=== PATIENT | female | born 1935 | race Caucasian/White ===

== ENCOUNTER 2024-10-31 07:30 | Emergency (ER) | payer MEDICARE, BC, SELFPAY ==
[2024-10-31] VITALS (7 sets, daily range): BP systolic 192–227; BP diastolic 61–95; PULSE 55–58; RESP 16–17; TEMP 36.6–36.8; O2SAT 95–97; BMI 27.4
--- NOTE | 2024-10-31 07:35 | EKG_ITS ---
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
--- NOTE | 2024-10-31 08:17 | XR_ITS ---
Examination: PA lateral chest 2 views Technique: Upright PA lateral chest 2 views Exam date and time: October 31, 2024 at 0835 hrs. Comparison December 11, 2017 Indications: Weakness shortness of breath today. Findings: Mild enlargement left ventricle No lobar pneumonia or pulmonary edema Prominent osteopenia Impression: Mild enlargement left ventricle No pneumonia or pulmonary edema
--- NOTE | 2024-10-31 08:18 | XR_ITS ---
Examination: CT brain head without contrast. 2-D sagittal coronal reconstructions Date and time of exam:October 31, 2024 0832 hrs. Indications: Lightheadedness episodes beginning 10 days ago CTDI: vol (mGy):45.7 DLP: (mGycm):977 Technique: Multiple CT axial sections of the brain have been obtained, 5 mm slice thickness. Contrast has not been administered. 2-D sagittal, coronal reconstructions have been obtained Low dose protocols were performed. One or more of the following dose reduction techniques were used; automated exposure control, adjustment of the mA and/or KV according to patient size, use of iterative reconstruction technique. Findings: No significant ventricular enlargement. Intra-axial or extra-axial hemorrhage density is not seen. No mass effect or midline shift Basal cisterns are not remarkable. Fourth ventricle is midline. Cranial vault intact. Impression: Negative for acute hemorrhage, mass effect or midline shift Advise clinical correlation follow-up accordingly
--- NOTE | 2024-10-31 08:46 | PC.NURSE ---
GIVEN WATER PER REQUEST
[2024-10-31 09:11] LABS: Basophils # (Auto) 0.1 Thou/mm3 (0.0-0.2); Basophils % (Auto) 1 % (0-2.5); Eosinophils # (Auto) 0.3 Thou/mm3 (0.0-0.5); Eosinophils % (Auto) 4 % (0-10); Hematocrit 40.5 % (36.0-46.0); Hemoglobin 13.5 g/dL (12.0-16.0); Immature Granulocytes % (Auto) 0 % (0-0); Immature Granulocytes Auto 0.03 Thou/mm3 (0.00-0.00); Lymphocytes # (Auto) 1.1 Thou/mm3 (1.0-4.8); Lymphocytes % (Auto) 15 % (10-50); Mean Corpuscular HGB Conc 33.3 g/dl (31.0-37.0); Mean Corpuscular Hemoglobin 29.5 pg (25.0-35.0); Mean Corpuscular Volume 89 fL (80-100); Monocytes # (Auto) 0.6 Thou/mm3 (0.0-0.8); Monocytes % (Auto) 7 % (0-12); Neutrophils # (Auto) 5.5 Thou/mm3 (1.8-7.7); Neutrophils % (Auto) 73 % (37-80); Nucleated Red Blood Cell % 0 /100 WBC (0); Platelet Count 293 Thou/mm3 (140-440); RDW Standard Deviation 44.1 fL (36.4-46.3); Red Blood Count 4.57 Miln/mm3 (4.00-5.20); White Blood Count 7.6 Thou/mm3 (3.6-11.0)
[2024-10-31 09:34] LABS: Alanine Aminotransferase 13 U/L (10-49); Albumin, Serum 4.7 gm/dL (3.4-4.8); Albumin/Globulin Ratio 1.5 (1.2-2.2); Alkaline Phosphatase 55 U/L (46-116); Anion Gap 6 (7-16); Aspartate Amino Transferase 19 U/L (0-34); BUN/Creatinine Ratio 21 Ratio (12-20); Bilirubin,Total 0.4 mg/dL (0.3-1.2); Blood Urea Nitrogen 17 mg/dL (9-23); Calcium 9.7 mg/dL (8.3-10.6); Calcium (Corrected) 9.7 mg/dL (8.5-10.1); Carbon Dioxide 27.7 mMol/L (20.0-31.0); Chloride 103 mMol/L (98-107); Creatinine (Component) 0.8 mg/dL (0.6-1.3); Estimated Creatinine Clearance 44.8 mL/min (>60); Globulin 3.1 gm/dL (2.3-3.5); Glucose 127 mg/dL (74-106); Osmolality,Calculated 277 (275-295); Potassium 4.2 mMol/L (3.4-5.1); Sodium 137 mMol/L (136-145); Total Protein 7.8 gm/dL (5.7-8.2); Troponin I < 0.020 ng/mL (0.0-0.045); eGFR > 60 See Note
[2024-10-31 09:47] LABS: B-Type Natriuretic Peptide 124 pg/mL (0-100)
--- NOTE | 2024-10-31 10:20 | PC.NURSE ---
Patient to er with c/o feeling very weak, daughter at bedside, daughter states for the past week she has been passing out off and on and has been seeing her PMD for this however, patient felt worse this am and called her daughter, chart up to be seen by er provider, call light within reach.
[2024-10-31 10:41] LABS: Collection Type, Urine Voided
[2024-10-31 11:02] LABS: Bilirubin,Urine Negative (Negative); Blood,Urine Negative (Negative); Clarity,Urine Clear (Clear/Hazy); Color,Urine Lt-Yellow (Lt Yel-Yel); Culture Indicated,Urine Not Indicated; Glucose, Urine Negative (Negative); Ketones,Urine Negative (Negative); Leukocyte Esterase,Urine Positive (Negative); Nitrite,Urine Negative (Negative); Protein,Urine 2+ (Neg - Trace); RBC,Urine 2 /hpf (0-3); Specific Gravity,Urine 1.014 (1.001-1.035); Squamous Epithelial Cell,Urine < 1 /hpf (0-5); Urobilinogen,Urine Negative mg/dL (0.0-1.0); WBC,Urine 10 /hpf (0-5)
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
[2024-10-31 11:51] LABS: Troponin I < 0.020 ng/mL (0.0-0.045)
[2024-10-31] MEDS: hydrALAZINE HCL 25 MG TABLET PO (11:58)
[2024-10-31] MEDS: amLODIPine BESYLATE 5 MG TABLET PO (11:59)
== END 2024-10-31 13:02 | disposition home or self-care (01) ==
PROVIDERS: Nurse Practitioner Family; Nurse Practitioner Primary Care; Emergency Provider Emergency Medicine; PCP Internal Medicine
DX: R42 Dizziness and giddiness (principal); R00.1 Bradycardia, unspecified; I16.0 Hypertensive urgency; E78.5 Hyperlipidemia, unspecified; E03.9 Hypothyroidism, unspecified
CPT/HCPCS: 36415; 70450; 71046; 80053; 81001; 83880; 84484; 85025; 93005; 99284; A9270

== ENCOUNTER 2025-03-26 07:29 | Inpatient (IN) | payer MEDICARE, BC, SELFPAY ==
[2025-03-26] VITALS (34 sets, daily range): BP systolic 171–223; BP diastolic 65–116; PULSE 56–102; RESP 14–97; TEMP 36.5–37.1; O2SAT 89–98; BMI 26.5
--- NOTE | 2025-03-26 07:33 | XR_ITS ---
Examination: CT brain head without contrast. 2-D sagittal coronal reconstructions Date and time of exam:March 26, 2025, 0739 hours Comparison October 31, 2024 INDICATIONS: Stroke alert, onset focal neurologic deficit beginning this morning CTDI: vol (mGy):46.9 DLP: (mGycm):930 Technique: Multiple CT axial sections of the brain have been obtained, 5 mm slice thickness. Contrast has not been administered. 2-D sagittal, coronal reconstructions have been obtained Low dose protocols were performed. One or more of the following dose reduction techniques were used; automated exposure control, adjustment of the mA and/or KV according to patient size, use of iterative reconstruction technique. Findings: No significant ventricular enlargement. Intra-axial or extra-axial hemorrhage density is not seen. No mass effect or midline shift Basal cisterns are not remarkable. Fourth ventricle is midline. Cranial vault intact. Impression: Negative for acute hemorrhage, mass effect or midline shift
--- NOTE | 2025-03-26 07:33 | EKG_ITS ---
[facility] Test Date: 2025-03-26 Pat Name: WINSTON MILLAN Department: Room: - Gender: Female Balance Clerk: : 1935 Requested By: Juarez Rojas Order Number: [id number] Reading MD: Juarez Rojas Measurements Intervals [place] Rate: 57 P: 55 [place]: 260 QRS: 42 QRSD: 104 T: 89 QT: 432 QTc: 421 Interpretive Statements SINUS BRADYCARDIA WITH FIRST DEGREE AV BLOCK INCOMPLETE RIGHT BUNDLE BRANCH BLOCK [90+ ms QRS DURATION, TERMINAL R IN V1/V2, 40+ ms S IN I/aVL/V4/V5/V6] ST DEVIATION AND MODERATE T-WAVE ABNORMALITY, CONSIDER LATERAL ISCHEMIA [-0.1+ mV T-WAVE IN I/aVL/V5/V6] Compared to ECG 10/31/2024 08:04:25 Possible ischemia now present T-wave abnormality still present /store/S0/[id number]
--- NOTE | 2025-03-26 07:33 | XR_ITS ---
Examination: CTA carotids with intravenous contrast CTA brain, head with intravenous contrast. 2-D sagittal, coronal reconstructions. 3-D reconstructions. Exam date and time: March 26, 2025, 0745 hrs. Indications: Stroke alert, onset left-sided body weakness today CTDI: vol (mGy) 20.8 DLP: (mGycm) 450 Technique: Multiple CTA axial brain, head carotid images post intravenous contrast injection 75 cc, [id number]. 2-D sagittal, coronal reconstructions. 3-D reconstructions, 3-D post processing including vascular maximum intensity projection images. Low dose protocols were performed. One or more of the following dose reduction techniques were used; automated exposure control, adjustment of the mA and/or KV according to patient size, use of iterative reconstruction technique. 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 No cerebral large vessel arterial occlusions or thrombus
--- NOTE | 2025-03-26 07:34 | EDNOTE_ITS ---
Neuro Symptoms Deficit-RME/HPI General Chief Complaint: Neuro Symptoms/Deficit Stated Complaint: temporary vision loss Arrival date/time: 03/26/25 07:29 RME / HPI RME / HPI Narrative: DR. GIMENEZ MAIN ED EVALUATION: This section includes all my notes and documentations, including HPI, PE, and ED course.? Juarez Gimenez MD HPI: 89 year old female with past medical history for hypertension here with left eye vision loss, generalized weakness possibly worse on the left side, and unsteady gait. She woke up with the symptoms at 0640 AM, about an hour ago, and called 91 1. She went to bed normal at 10 PM last night. Her symptoms lasted for about 30 minutes and have completely resolved. Per EMS, her BP was elevated at 211/81. No other complaints. ROS: All negative except as documented in HPI. Physical Exam: General:? Alert and oriented.? No acute distress.?? Eyes:? Conjunctivae and lids clear.? EOMI.? PERRL. ENT:? No nasal congestion.? Neck:? Supple.? No carotid bruit.? No JVD.?? Heart:? RRR.? Lungs:? No respiratory distress.? Good air movement.? No rhonchi, wheezing, rales.?? Abdomen:? Soft and nontender.? Legs:? No clubbing, cyanosis, edema.? Skin:? Warm and dry.?? Neuro:? Alert and oriented X 3.? Cranial Nerves II-XII grossly intact.? No peripheral motor deficits. I reviewed EMS notes. I reviewed all diagnostic test results. My interpretation of the EKG is?Sinus rhythm (57 bpm) with nonspecific ST-T changes. My interpretation of the chest x-ray is NAD. My review of the head CT report is?NAD. My review of the head/neck CTA report is NAD. Blood tests remarkable for troponin 0.064. UA showed positive leukocyte esterase and 19 WBC. At this point, diagnoses include TIA, elevated troponin, and UTI. Treatment here included Plavix 300 mg and Rocephin 1 g IV. Patient took ASA at home. Patient remained stable. I discussed the case with our telehealth neurologist.? About the presentation and exam and diagnostics and treatments here.? Recommended hospitalization for further care. I discussed the case with our hospitalist.? About the presentation and exam and diagnostics and treatments here.? And need of further care in the hospital. Will accept the patient. Juarez Gimenez MD Related Data Home Medications ?Medication ?Instructions ?Recorded ?Confirmed sertraline 100 mg tablet (Zoloft) 50 mg PO QDAY ##0 01/04/24 simvastatin 40 mg tablet 40 mg PO QDAY ##0 11/26/12 0 01/04/24 amlodipine 5 mg tablet 5 mg PO BID #0 tabs 05/15/16 01/04/24 hydrochlorothiazide 12.5 mg capsule 12.5 mg PO QDAY 01/04/24 fenofibrate nanocrystallized 48 mg 48 mg PO QDAY 10/0801/04/24 tablet carvedilol 25 mg tablet 25 mg PO BID 06/13/23 diazepam 5 mg tablet (Valium) 5 mg PO DAILY PRN Anxiet y 06/13/23 01/04/24 levothyroxine 100 mcg tablet 100 mcg PO QDAY 06/13/23 01/04/24 (Synthroid) Allergies Allergy/AdvReac Type Severity Reaction Status Date / Time Penicillins Allergy Severe Rash Verified 10/31/24 07:34 shellfish derived Allergy Severe Hives Verified 10/31/24 07:34 tramadol Allergy Severe Headache Verified 10/31/24 07:34 Course Quality Measures none Orders Category Date Time Status Bedside Blood Glucose NOW Care 03/26/25 07:33 Active COVID-19 Screening Questionnaire NOW Care 03/26/25 09:55 Active Director Home NOW Care 03/26/25 07:33 Active Continuous Pulse Oximetry NOW Care 03/26/25 07:33 Completed Decision to Admit X1 Care 03/26/25 09:55 Active EKG (ED ONLY) *Do not use* NOW Care 03/26/25 07:33 Completed In and Out Catheter NEEDED Care 03/26/25 07:33 Active Insert IV NOW Care 03/26/25 07:33 Active NIH Stroke Scale now Care 03/26/25 07:33 Active NPO NOW Care 03/26/25 07:33 Active Nurse Swallow Screen x1 Care 03/26/25 07:33 Active Consult to Neurology / Tele-Neurology Routine Cons 03/26/25 07:[address] angio stroke protocol Stat Exams 03/26/25 07:[address] stroke protocol Stat Exams 03/26/25 07:33 Completed EKG (ED Only) Stat Exams 03/26/25 07:33 Draft XR chest 1V portable Stat Exams 03/26/25 07:34 Completed Alcohol, Blood Medical Stat Lab 03/26/25 07:40 Completed B-Type Natriuretic Peptide Stat Lab 03/26/25 07:40 Completed Bilirubin,Direct Stat Lab 03/26/25 07:40 Completed CBC Stat Lab 03/26/25 07:40 Completed Comprehensive Metabolic Panel Stat Lab 03/26/25 07:40 Completed Drug Screen,Urine Stat Lab 03/26/25 08:45 Completed Free T4 (Free Thyroxine) Stat Lab 03/26/25 07:40 Completed Magnesium Stat Lab 03/26/25 07:40 Completed Partial Thromboplastin Time Stat Lab 03/26/25 07:40 Completed Prothrombin Time with INR Stat Lab 03/26/25 07:40 Completed TSH [Thyroid Stimulating Hormone] Stat Lab 03/26/25 07:40 Completed Troponin I Stat Lab 03/26/25 07:40 Completed Urinalysis Stat Lab 03/26/25 08:42 Completed Urine Culture Stat Lab 03/26/25 08:45 Received Clopidogrel [Plavix] Med 03/26/25 07:55 Discontinued 300 mg PO X1 ONE Labetalol IV [Trandate IV] Med 03/26/25 07:33 Discontinued 10 mg IVP Q15M PRN Labetalol IV [Trandate IV] Med 03/26/25 08:40 Active 10 mg IVP Q15M PRN Nicardipine/Ns 20Mg Ivpb [Cardene Ivpb] Med 03/26/25 07:33 Active 20 mg in 200 ml IV 5 mg/hr Ondansetron Inj [Zofran Inj] Med 03/26/25 07:33 Active 4 mg IVP Q4HR PRN Sodium Chloride 0.9% 1000 ml [Ns] 1,000 ml Med 03/26/25 07:45 Active IV Q10H Oxygen Delivery NOW RT 03/26/25 07:33 Active Vital Signs Vital signs: Vital Signs Temperature 97.8 F 03/26/25 09:29 Pulse Rate 57 L 03/26/25 09:29 Respiratory Rate 17 03/26/25 09:29 Blood Pressure 192/68 H 03/26/25 09:29 Pulse Oximetry (%) 95 03/26/25 09:29 Oxygen Delivery Method Room Air 03/26/25 09:29 Neuro Symptoms / Deficit MDM Narrative MDM Narrative:: I, Angie Aggarwal am scribing for and in the presence of Dr. Gimenez. 89 year old female with past medical history for hypertension here with left eye vision loss, generalized weakness possibly worse on the left side, and unsteady gait. She woke up with the symptoms at 0640 AM, about an hour ago, and called 911. She went to bed normal at 10 PM last night. Her symptoms lasted for about 30 minutes and have completely resolved. Per EMS, her BP was elevated at 211/81. No other complaints. Patient data External records reviewed:: [facility] previous records and EMS form Clinical information provided by:: patient and EMS Social determinants that could affect healthcare access:: none Patient has the following chronic illnesses:: hypertension How is presenting disease/condition affected by chronic disease/condition?: exacerbated by Evaluation data The following diagnostics were reviewed and interpreted by me:: EKG tracing(s) (My interpretation of the EKG is: Sinus rhythm (57 bpm) with nonspecific ST-T changes. Juarez Gimenez MD) Lab and/or radiology exams considered but not ordered:: none Interpretation Summary: I reviewed all diagnostic test results. My interpretation of the EKG is?Sinus rhythm (57 bpm) with nonspecific ST-T changes. My interpretation of the chest x-ray is NAD. My review of the head CT report is?NAD. My review of the head/neck CTA report is NAD. Blood tests remarkable for troponin 0.064. UA showed positive leukocyte esterase and 19 WBC. Medications / Prescriptions Medications or Prescriptions considered but not ordered:: none Medication administrations:: Medication Administration History Acetaminophen (Acetaminophen 325 Mg Tablet) 650 mg PO Q6H PRN PRN Reason: Fever >101.5 Stop: 04/25/25 10:00 Acetaminophen (Acetaminophen 325 Mg Tablet) 650 mg PO Q6H PRN PRN Reason: PAIN SCALE 1-3 (mild Stop: 04/25/25 10:00 Aspirin (Aspirin Ec 81 Mg Tabec) 81 mg PO QDAY [facility] Stop: 04/26/25 08:59 Atorvastatin Calcium (Atorvastatin Calcium 20 Mg Tablet) 40 mg PO HS [facility] Stop: 04/25/25 20:59 Heparin Sodium (Porcine) (Heparin Sod Inj 5000 Unit/Ml Vial) 5,000 unit SC Q8HR [facility] Stop: 04/09/25 13:59 Hydralazine HCl (Hydralazine Inj 20 Mg/Ml Vial) 10 mg IVP Q6H PRN PRN Reason: Give if SBP>220 AND DBP>120 Stop: 04/25/25 10:14 Sodium Chloride (Ns) 1,000 mls @ 100 mls/hr IV Q10H [facility] Stop: 04/25/25 07:44 Last Admin: 03/26/25 08:37 Dose: 100 mls/hr Documented By: VG Nicardipine/Sodium Chloride (Cardene Ivpb) 20 mg in 200 mls @ 50 mls/hr IV .Q4H ONE; Protocol Stop: 03/26/25 11:32 Last Admin: 03/26/25 08:38 Dose: Not Given Documented By: VG Non-Admin Reason: Change of Condition Labetalol HCl (Labetalol Inj 5 Mg/Ml Vial 20 Ml) 10 mg IVP Q15M PRN PRN Reason: HIGH BP, SBP GREATER THAN 220 Levothyroxine Sodium (Levothyroxine Sodium 112 Mcg Tablet) 112 mcg PO ACBR [facility] Stop: 04/26/25 05:59 Ondansetron HCl (Ondansetron Inj 2 Mg/Ml Inj 2 Ml) 4 mg IVP Q4HR PRN PRN Reason: NAUSEA OR VOMITING Stop: 04/25/25 07:32 Pantoprazole Sodium (Pantoprazole 40 Mg Tablet) 40 mg PO QDAY [facility] Stop: 04/25/25 10:14 Sennosides (Senna Tablet) 1 tab PO QDAY PRN; Protocol PRN Reason: constipation Stop: 04/25/25 10:00 Discontinued Medications Aspirin (Aspirin Ec 81 Mg Tabec) 81 mg PO QDAY [facility] Stop: 04/25/25 10:14 Last Admin: 03/26/25 10:33 Dose: Not Given Documented By: VG Non-Admin Reason: Discontinued Clopidogrel Bisulfate (Clopidogrel Bisulfate 75 Mg Tablet) 300 mg PO X1 ONE Stop: 03/26/25 07:56 Last Admin: 03/26/25 08:35 Dose: 300 mg Documented By: VG Ceftriaxone Sodium/Dextrose (Rocephin/D5w 1gm Iv Premix) 1 gm in 50 mls @ 100 mls/hr IV X1 ONE Stop: 03/26/25 10:39 Labetalol HCl (Labetalol Inj 5 Mg/Ml Vial 20 Ml) 10 mg IVP Q15M PRN PRN Reason: HIGH BP Treatment here included Plavix 300 mg and Rocephin 1 g IV. Patient took ASA at home. Consultations Consultation(s) initiated? (list below): Yes Consultation #1 (Physician, Specialty, Details): I discussed the case with our telehealth neurologist.? About the presentation and exam and diagnostics and treatments here.? Recommended hospitalization for further care. Consultation #2 (Physician, Specialty, Details): I discussed the case with our hospitalist.? About the presentation and exam and diagnostics and treatments here.? And need of further care in the hospital. Will accept the patient. Diagnosis Neuro Differential Diagnosis: subarachnoid hemorrhage, cerebrovascular accident, transient cerebral ischemia and other (Sepsis, pneumonia, UTI, dehydration, electrolyte abnormalities) Most likely diagnosis given after review of the tests above:: TIA, UTI, elevated troponin Admission Indicated Admission indicated?: indicated Explain why admission is indicated or not indicated:: TIA, UTI, elevated troponin Admission Request Was there a request for admission?: Yes Admission Attestation Admission request attestation: Discussed case with Hospitalist service regarding admission. Discussed patients ED course, exam findings, labs, and radiology results. The Hospitalist [agrees] to accept the patient for admission. Disposition Plan Disposition Plan: Admit Critical Care Time Critical Care Time Critical Care Time: Yes Total Critical Care Time (min.): 36 Attestation: Due to a high probability of clinically significant, life threatening deterioration, the patient required my highest level of preparedness to intervene emergently and I personally spent this critical care time directly and personally managing the patient. This critical care time included obtaining a history; examining the patient; ordering and review of studies; arranging urgent treatment with development of a management plan; evaluation of patient's response to treatment; frequent reassessment; and discussions with family and other providers. It was exclusive of separately billable procedures and treating other patients and teaching time. Juarez Gimenez MD Discharge Plan Plan Patient Disposition: Admit Acute Care w/in Hospital Problem List Clinical Impression: Transient cerebral ischemia, UTI (urinary tract infection), Elevated troponin
--- NOTE | 2025-03-26 07:34 | XR_ITS ---
Examination: AP chest single view Technique one AP portable upright chest single view Date and time: March 26, 2025, 0758 hrs. Comparison July 31, 2025 Indications: Shortness of breath today. Findings: Mild enlargement cardiac contour. Mild vascular congestion. No lobar pneumonia or pulmonary edema Impression: Mild vascular congestion.
--- NOTE | 2025-03-26 07:54 | PD.TNEURO ---
Tele Neuro Consultation Consultation Date 03/26/25 Consultation Narrative [facility] Tele[facility] Consult [facility] Patient Name:???Kasia Martinez Date of :???[id number] Identification Number:??? Date of Service:???03/26/2025 07:23:56 Diagnosis:?R26.81 - Unsteady gait Impression: ?Patient is a 89-year-old female with a past medical history significant for hypertenson, hyperlipidemia currently on aspirin 81 mg is being evaluated for concerns of left eye vision problems and imbalance. ? ?Patient presents with complaints of unsteadiness when ambulating. She has also had an episode of left eye vision problems which seems to have resolved. Her last well-known was yesterday night when she went to bed. She had her symptoms the moment she woke up this morning. ?Head CT appears unremarkable for any acute intracranial findings. ?On exam she is awake alert, no clear lateralizing numbness or weakness. Extraocular motion and visual parra (as per nursing exam) are intact. No upper extremity ataxia bilaterally. Speech and language function seemingly intact. ? ?Have to rule out a posterior circulation ischemic event. ?Last well-known greater than 4-1/2 hours, patient is not an IV thrombolytic candidate. ?She takes aspirin every day, load with Plavix 300 mg. ?Allow permissive hypertension up to a systolic of 220. ?Please obtain MRI brain with and without contrast. Our recommendations are outlined below. Recommendations: ? Stroke/Telemetry Floor ? Neuro Checks (Q2) ? Bedside Swallow Eval ? DVT Prophylaxis ? IV Fluids, Normal Saline ? Head of Bed 30 Degrees ? Euglycemia and Avoid Hyperthermia (PRN Acetaminophen) Sign Out: ? Discussed with Emergency Department Provider Advanced Imaging:Advanced imaging has been ordered. Results pending. Metrics: Last Known Well: 03/25/2025 22:00:00 Dispatch Time: 03/26/2025 07:23:56 Arrival Time: 03/26/2025 07:30:11 Initial Response Time: 03/26/2025 07:28:14Symptoms: left eye vision loss, balance issues. Initial patient interaction: 03/26/2025 07:32:07 NIHSS Assessment Completed: 03/26/2025 07:42:54Patient is not a candidate for Thrombolytic. Thrombolytic Medical Decision: 03/26/2025 07:43:02Patient was not deemed candidate for Thrombolytic because of following reasons: LKW outside 4.[address] Head: CT head unremarkable for acute infarction or hemorrhage per Radiology: report reviewed Primary Provider Notified of Diagnostic Impression and Management Plan on: 03/26/2025 07:52:22 History of Present Illness:Patient is a 89 year old Female. Patient was brought by EMS for symptoms of left eye vision loss, balance issues. Patient is a 89-year-old female with a past medical history significant for hypertension, hyperlipidemia currently on aspirin 81 mg is being evaluated for concerns of left eye vision problems and imbalance. Patient mentions that the last time she walked normally was yesterday night when she went to bed. She went to bed at approximately 930 or 10 PM. She woke up at 7 AM this morning. She states that she was seemingly normal when she was laying down in bed, however when she stood up she started feeling out of balance. She describes it as the whole body was out of control. She was wobbly. She had to hold onto things when she had to walk. She also noticed left eye vision problems. She states that it felt as if there were fireworks on the left eyelid. The vision problems lasted for approximately 30 minutes or so and it resolved. Currently she says she has not walked since then. She called EMS. EMS brought her here. She states she measured her blood pressure and it was very elevated. It was elevated even yesterday night at 152/62. This morning it was running in the 200s. ? Past Medical History: ?Hypertension ?Hyperlipidemia ?There is no history of Diabetes Mellitus Other PMH:? Hypothyroidism Medications: No Anticoagulant use? No Antiplatelet use Reviewed EMR for current medications Allergies:? Description:?As per chart Social History: Smoking: No Family History: There is no family history of premature cerebrovascular disease pertinent to this consultation ROS : 14 Points Review of Systems was performed and was negative except mentioned in HPI. Past Surgical History: There Is No Surgical History Contributory To Today?s Visit ? Examination: BP(235/85),?Pulse(62),?Blood Glucose(129) 1A: Level of Consciousness - Alert; keenly responsive?+ 0 1B: Ask Month and Age - Both Questions Right?+ 0 1C: Blink Eyes & Squeeze Hands - Performs Both Tasks?+ 0 2: Test Horizontal Extraocular Movements - Normal?+ 0 3: Test Visual Parra - No Visual Loss?+ 0 4: Test Facial Palsy (Use Grimace if Obtunded) - Normal symmetry?+ 0 5A: Test Left Arm Motor Drift - No Drift for 10 Seconds?+ 0 5B: Test Right Arm Motor Drift - No Drift for 10 Seconds?+ 0 6A: Test Left Leg Motor Drift - No Drift for 5 Seconds?+ 0 6B: Test Right Leg Motor Drift - No Drift for 5 Seconds?+ 0 7: Test Limb Ataxia (FNF/Heel-Shah) - No Ataxia?+ 0 8: Test Sensation - Normal; No sensory loss?+ 0 9: Test Language/Aphasia - Normal; No aphasia?+ 0 10: Test Dysarthria - Normal?+ 0 11: Test Extinction/Inattention - No abnormality?+ 0 NIHSS Score:?0 Pre-Morbid Modified [place] Scale:1 Points = No significant disability despite symptoms; able to carry out all usual duties and activities Spoke with :?ED Provider This consult was conducted in real time using interactive audio and video technology. Patient was informed of the technology being used for this visit and agreed to proceed. Patient located in hospital and provider located at home/office setting. Patient is being evaluated for possible acute neurologic impairment and high probability of imminent or life-threatening deterioration. I spent total of 48 minutes providing care to this patient, including time for face to face visit via telemedicine, review of medical records, imaging studies and discussion of findings with providers, the patient and/or family. Dr Reji Núñez [facility] For Inpatient follow-up with [facility] physician please call [facility] at . As we are not an outpatient service for any post hospital discharge needs please contact the hospital for assistance. If you have any questions for the [facility] physicians or need to reconsult for clinical or diagnostic changes please contact us via [facility] at . ?
[2025-03-26 08:14] LABS: Basophils # (Auto) 0.1 Thou/mm3 (0.0-0.2); Basophils % (Auto) 1 % (0-2.5); Eosinophils # (Auto) 0.2 Thou/mm3 (0.0-0.5); Eosinophils % (Auto) 3 % (0-10); Hematocrit 39.1 % (36.0-46.0); Hemoglobin 13.7 g/dL (12.0-16.0); Immature Granulocytes Auto 0.02 Thou/mm3 (0.00-0.00); Lymphocytes # (Auto) 1.4 Thou/mm3 (1.0-4.8); Lymphocytes % (Auto) 25 % (10-50); Mean Corpuscular HGB Conc 35.0 g/dl (31.0-37.0); Mean Corpuscular Hemoglobin 29.5 pg (25.0-35.0); Mean Corpuscular Volume 84 fL (80-100); Monocytes # (Auto) 0.5 Thou/mm3 (0.0-0.8); Monocytes % (Auto) 9 % (0-12); Neutrophils # (Auto) 3.5 Thou/mm3 (1.8-7.7); Neutrophils % (Auto) 62 % (37-80); Nucleated Red Blood Cell # 0.00 Thou/mm3 (0.00-0.00); Nucleated Red Blood Cell % 0 /100 WBC (0); Platelet Count 307 Thou/mm3 (140-440); RDW Standard Deviation 43.9 fL (36.4-46.3); Red Blood Count 4.64 Miln/mm3 (4.00-5.20); White Blood Count 5.7 Thou/mm3 (3.6-11.0)
[2025-03-26 08:34] LABS: INR 1.0 (0.9-1.3); Partial Thromboplastin Time 29.1 Seconds (22.0-36.0); Prothrombin Time 11.4 Seconds (9.0-12.2)
[2025-03-26] MEDS: CLOPIDOGREL BISULFATE 75 MG TABLET 300 MG PO (08:35)
[2025-03-26] MEDS: SODIUM CHLORIDE 0.9% 1000 ML 1,000 ML 100 ML IV ×2 (08:37→20:40)
[2025-03-26 08:39] LABS: B-Type Natriuretic Peptide 109 pg/mL (0-100)
[2025-03-26 08:50] LABS: Alanine Aminotransferase 14 U/L (10-49); Albumin, Serum 4.5 gm/dL (3.4-4.8); Albumin/Globulin Ratio 1.6 (1.2-2.2); Alcohol, Blood Medical < 3.0 mg/dL (0-10.0); Alkaline Phosphatase 57 U/L (46-116); Anion Gap 13 (7-16); Aspartate Amino Transferase 20 U/L (0-34); BUN/Creatinine Ratio 20 Ratio (12-20); Bilirubin,Direct 0.1 mg/dL (0.0-0.3); Bilirubin,Total 0.5 mg/dL (0.3-1.2); Blood Urea Nitrogen 18 mg/dL (9-23); Calcium 9.5 mg/dL (8.3-10.6); Calcium (Corrected) 9.5 mg/dL (8.5-10.1); Carbon Dioxide 26.9 mMol/L (20.0-31.0); Chloride 95 mMol/L (98-107); Creatinine (Component) 0.9 mg/dL (0.6-1.3); Free T4 (Free Thyroxine) 1.52 ng/dL (0.89-1.76); Globulin 2.8 gm/dL (2.3-3.5); Glucose 123 mg/dL (74-106); Magnesium 1.8 mg/dL (1.6-2.6); Osmolality,Calculated 273 (275-295); Potassium 3.5 mMol/L (3.4-5.1); Sodium 135 mMol/L (136-145); Thyroid Stimulating Hormone 1.16 uIU/mL (0.55-4.78); Total Protein 7.3 gm/dL (5.7-8.2); eGFR > 60 See Note
[2025-03-26 08:52] LABS: Troponin I 0.064 ng/mL (0.0-0.045)
[2025-03-26 09:14] LABS: Collection Type, Urine Clean Catch; RBC,Urine 0 /hpf (0-3)
[2025-03-26 09:24] LABS: Bilirubin,Urine Negative (Negative); Blood,Urine Negative (Negative); Clarity,Urine Clear (Clear/Hazy); Color,Urine Colorless (Lt Yel-Yel); Glucose, Urine Negative (Negative); Ketones,Urine Negative (Negative); Leukocyte Esterase,Urine Positive (Negative); Nitrite,Urine Positive (Negative); PH,Urine 7.5 (5.0-7.0); Protein,Urine Trace (Neg - Trace); Specific Gravity,Urine 1.019 (1.001-1.035); Squamous Epithelial Cell,Urine < 1 /hpf (0-5); Urobilinogen,Urine Negative mg/dL (0.0-1.0); WBC,Urine 19 /hpf (0-5)
[2025-03-26 09:33] LABS: Amphetamine/Methamp Scrn,U Negative (Negative); Barbiturate Screen,Urine Negative (Negative); Benzodiazepines Screen,Urine Positive (Negative); Benzoylecgonine Screen, Ur Negative (Negative); Fentanyl Screen,Urine Negative (Negative); Opiate Screen,Urine Negative (Negative); THC Screen,Urine Negative (Negative)
[2025-03-26] MEDS: ACETAMINOPHEN 325 MG TABLET 650 MG PO ×2 (11:03→20:16)
[2025-03-26] MEDS: PANTOPRAZOLE 40 MG TABLET PO (11:04)
[2025-03-26] MEDS: cefTRIAXone/D5w 1gm IV premix 1 GM/50 ML BAG IV (11:05)
[2025-03-26 11:57] LABS: Troponin I 0.060 ng/mL (0.0-0.045)
[2025-03-26] MEDS: HEPARIN SOD INJ 5000 UNIT/ML VIAL SC ×2 (14:12→21:59)
--- NOTE | 2025-03-26 15:38 | PD.RESHP ---
Documentation for date of: 03/26/25 [facility] History of Present Illness Chief complaint: Blurred vision and imbalance History of present illness: This patient is a 89-year-old female with past medical history of hypertension, hyperlipidemia, hypothyroidism presented to ED on 03/26/2025 with chief complaint of blurred vision and imbalance. She reported that she slept well at night around 11 PM. She woke up in the morning at 7 AM to use the restroom while she had 30 minutes episode of blurred vision with diplopia more in the left eye with feeling of sparkling in her eye and imbalance while walking as she felt dizzy. She denied hitting her head or fallen or losing consciousness. She denied any weakness or drooping of face. Endorses ringing in the ears. She reported that she had feeling of burning sensation due to acid reflux 3 days ago and followed her rail transit operator, who performed stress test as outpatient and there was less likely possibility of requiring cardiac catheterization. Patient uses walker for ambulation. She lives alone and called her granddaughter when this happened. No previous episodes of similar presentation. Patient denied any fever, chills, chest pain, shortness of breath, abdominal pain, nausea, vomiting or burning in the urine. In the ED, patient was hypertensive with blood pressure 191/170, heart rate 61, respiratory rate 18. She was afebrile and satting well on room air. Labs showed white count within normal limits. Hemoglobin stable at 13.7. Coagulation panel showed INR 1.0. Chemistry panel showed mild hyponatremia sodium 135, hypochloremia chloride 95. Potassium 3.5. Kidney function was stable. Magnesium 1.8. LFTs within normal limits. BNP slightly elevated. UA showed pH 7.5. WBC 19. U tox was positive for benzodiazepines. Imaging: Head CT showed no acute changes. Head and neck CT [id number] stenosis left carotid bifurcation. Chest x-ray showed mild vascular congestion. EKG showed sinus bradycardia with no acute ST-T changes. Incomplete RBBB. QTc 421. PMH: As above PSH: Carpal tunnel release, metallic rods placed in her back for back surgery Allergies: Shellfish and penicillin causes hives Family history: History of hypertension in mother SH: Denies smoking, drinking alcohol. No history of illicit drug use. Home medications: Aspirin 81 mg once a day, carvedilol 6.25 mg twice daily, fenofibrate 48 mg once a day, hydrochlorothiazide 12.5 mg once a day, amlodipine 5 mg once a day, sertraline 50 mg at bedtime, Valium 5 mg daily as needed simvastatin 40 mg at bedtime, levothyroxine 100 mcg once a day Patient is admitted for further workup and management of stroke versus TIA. Review of Systems Review of Systems Systems Reviewed: All systems reviewed, normal except as documented Past Medical History Past Medical History CARDIAC: Positive Cardiac Disorders, Hypercholesterolemia and Hypertension GASTROINTESTINAL: Positive Gastrointestinal Disorders, Diverticulitis, Hemorrhoids (NO SURG) and Gastroesophageal Reflux Disease REPRODUCTIVE: Positive Breast Cancer and Previous Pregnancies (X2) MUSCULOSKELETAL: Positive Musculoskeletal Disorders, Arthritis, Degenerative Disk Disease and Carpal Tunnel Syndrome (bilateral) ENT: Positive Cataracts ENDOCRINE: Positive Endocrine Disorders and Hypothyroidism PSYCHO/SOCIAL: Positive Depression and Anxiety OTHER HISTORY: Positive Hospitalization (surgery), Chicken Pox, Measles, Mumps, Cancer (had area on breast was removed and did not need chemo or radiation) and Breast Cancer Family History FAMILY HISTORY: Positive Family Cardiac Disorders (MOTHER), Family Cancer (BROTHER, SISTER) and Family Surgery (SISTERS,MOTHER) Surgical History SURGICAL: Positive Lumpectomy (LEFT BREAST) and Tubal Ligation (1976) Social History SMOKING STATUS: Never smoker SUBSTANCE USE: does not use ALCOHOL: Never Exam Vital Signs Temp Pulse Resp BP Pulse Ox O2 Del Method 97.8 F 63 19 198/68 H 93 L Room Air 03/26/25 13:00 03/26/25 14:15 03/26/25 14:15 03/26/25 14:15 03/26/25 14:15 03/26/25 13:00 Narrative Exam GENERAL APPEARANCE: AxOx4, generally well-appearing female in no acute distress. HEENT: NC, AT. MMM. EOMI, clear conjunctiva, oropharynx clear. NECK: Supple without lymphadenopathy. No stiffness or restricted ROM. HEART: Regular rate and regular rhythm, normal S1/S2, no m/r/g LUNGS: CTAB, moving air well. No crackles or wheezes are heard. ABDOMEN: Soft, nontender, nondistended with good bowel sounds heard. BACK: No CVAT, no obvious deformity. EXTREMITIES: Without cyanosis, clubbing or edema. NEUROLOGICAL: Grossly nonfocal. Alert and oriented, moving all 4 extremities. CN not formally tested but appear grossly intact. Use walker for ambulation. Skin: Warm and dry without any rash. varicose veins both lower extremities. Psych: Appropriate mood and affect Results: Labs 03/27/25 05:45 03/27/25 05:45 Labs: Short CBC 03/26/25 Range/Units 07:40 WBC 5.7 (3.6-11.0) Thou/mm3 Hgb 13.7 (12.0-16.0) g/dL Hct 39.1 (36.0-46.0) % Plt Count 307 (140-440) Thou/mm3 BMP 03/26/25 07:40 Sodium 135 L Potassium 3.5 Chloride 95 L Carbon Dioxide 26.9 BUN 18 Creatinine 0.9 Glucose 123 H Calcium 9.5 Cardiac Enzymes 03/26/25 03/26/25 Range/Units 07:40 10:52 Troponin I 0.064 H* 0.060 H* (0.0-0.045) ng/mL Liver Function 03/26/25 Range/Units 07:40 Total Bilirubin 0.5 (0.3-1.2) mg/dL Direct Bilirubin 0.1 (0.0-0.3) mg/dL AST 20 (0-34) U/L ALT 14 (10-49) U/L Alkaline Phosphatase 57 (46-116) U/L Albumin 4.5 (3.4-4.8) gm/dL Urine 03/26/25 Range/Units 08:42 Urine Color Colorless A (Lt Yel-Yel) Urine Clarity Clear (Clear/Hazy) Urine pH 7.5 H (5.0-7.0) Ur Specific [place] 1.019 (1.001-1.035) Urine Protein Trace (Neg - Trace) Urine Glucose (UA) Negative (Negative) Quality Measures Quality Measures VTE prophylaxis (Heparin SC) Advance care planning discussed with:: patient Medications Home Medications and Allergies Home Medications ?Medication ?Instructions ?Recorded ?Confirmed ?Type sertraline 100 mg tablet (Zoloft) 50 mg PO QDAY ##0 11/26/12 03/26/25 History simvastatin 40 mg tablet 40 mg PO QDAY ##0 11/26/12 03/26/25 History amlodipine 5 mg tablet 5 mg PO BID #0 tabs 05/15/16 03/26/25 History hydrochlorothiazide 12.5 mg capsule 12.5 mg PO QDAY 02/05/19 03/26/25 History fenofibrate nanocrystallized 48 mg 48 mg PO QDAY 10/08/19 03/26/25 History tablet carvedilol 25 mg tablet 6.25 mg PO BID 06/13/23 03/26/25 History diazepam 5 mg tablet (Valium) 5 mg PO DAILY PRN Anxiety 06/13/23 03/26/25 History levothyroxine 100 mcg tablet 100 mcg PO QDAY 06/13/23 03/26/25 History (Synthroid) aspirin 81 mg tablet 81 mg PO QDAY 03/26/25 03/26/25 History Allergies Allergy/AdvReac Type Severity Reaction Status Date / Time Penicillins Allergy Severe Rash Verified 03/26/25 14:09 shellfish derived Allergy Severe Hives Verified 03/26/25 14:09 tramadol Allergy Severe Headache Verified 03/26/25 14:09 Visit Medications Acetaminophen (Acetaminophen 325 Mg Tablet) 650 mg PO Q6H PRN PRN Reason: Fever >101.5 Stop: 04/25/25 10:00 Acetaminophen (Acetaminophen 325 Mg Tablet) 650 mg PO Q6H PRN PRN Reason: PAIN SCALE 1-3 (mild Stop: 04/25/25 10:00 Last Admin: 03/26/25 11:03 Dose: 650 mg Aspirin (Aspirin Ec 81 Mg Tabec) 81 mg PO QDAY [facility] Stop: 04/26/25 08:59 Atorvastatin Calcium (Atorvastatin Calcium 20 Mg Tablet) 40 mg PO HS [facility] Stop: 04/25/25 20:59 Heparin Sodium (Porcine) (Heparin Sod Inj 5000 Unit/Ml Vial) 5,000 unit SC Q8HR [facility] Stop: 04/09/25 13:59 Last Admin: 03/26/25 14:12 Dose: 5,000 unit Hydralazine HCl (Hydralazine Inj 20 Mg/Ml Vial) 10 mg IVP Q6H PRN PRN Reason: Give if SBP>220 AND DBP>120 Stop: 04/25/25 10:14 Sodium Chloride (Ns) 1,000 mls @ 100 mls/hr IV Q10H [facility] Stop: 04/25/25 07:44 Last Admin: 03/26/25 08:37 Dose: 100 mls/hr Levothyroxine Sodium (Levothyroxine Sodium 112 Mcg Tablet) 112 mcg PO ACBR LEAH Stop: 04/26/25 05:59 Ondansetron HCl (Ondansetron Inj 2 Mg/Ml Inj 2 Ml) 4 mg IVP Q4HR PRN PRN Reason: NAUSEA OR VOMITING Stop: 04/25/25 07:32 Pantoprazole Sodium (Pantoprazole 40 Mg Tablet) 40 mg PO QDAY [facility] Stop: 04/25/25 10:14 Last Admin: 03/26/25 11:04 Dose: 40 mg Sennosides (Senna Tablet) 1 tab PO QDAY PRN; Protocol PRN Reason: constipation Stop: 04/25/25 10:00 Discontinued Medications Aspirin (Aspirin Ec 81 Mg Tabec) 81 mg PO QDAY [facility] Stop: 04/25/25 10:14 Last Admin: 03/26/25 10:33 Dose: Not Given Clopidogrel Bisulfate (Clopidogrel Bisulfate 75 Mg Tablet) 300 mg PO X1 ONE Stop: 03/26/25 07:56 Last Admin: 03/26/25 08:35 Dose: 300 mg Nicardipine/Sodium Chloride (Cardene Ivpb) 20 mg in 200 mls @ 50 mls/hr IV .Q4H ONE; Protocol Stop: 03/26/25 11:32 Last Admin: 03/26/25 08:38 Dose: Not Given Ceftriaxone Sodium/Dextrose (Rocephin/D5w 1gm Iv Premix) 1 gm in 50 mls @ 100 mls/hr IV X1 ONE Stop: 03/26/25 10:39 Last Infusion: 03/26/25 12:12 Dose: Infused Labetalol HCl (Labetalol Inj 5 Mg/Ml Vial 20 Ml) 10 mg IVP Q15M PRN PRN Reason: HIGH BP Labetalol HCl (Labetalol Inj 5 Mg/Ml Vial 20 Ml) 10 mg IVP Q15M PRN PRN Reason: HIGH BP, SBP GREATER THAN 220 Assessment & Plan Plan This patient is a 89-year-old female with past medical history of hypertension, hyperlipidemia, hypothyroidism presented to the ED on 03/26/2025 with chief complaint of blurred vision and imbalance. She is admitted for stroke workup. #Stroke versus TIA workup -Patient presented with blurred vision and imbalance started this morning. Last well-known time was 10 PM. Patient had symptoms of blurred vision and ataxia at 7 AM. Symptoms resolved by the time patient presented to the hospital. No focal neurological deficits since. ? In the ED, patient was hypertensive with blood pressure 191/70, heart rate 61, respirate 18. She was afebrile and saturating well on room air. ? Head CT showed no acute changes. Head and neck CTA showed 40-60% stenosis of the left carotid bifurcation. Chest x-ray showed mild vascular congestion. EKG showed sinus bradycardia with QTc 421. No acute ST-T changes were seen. Incomplete RBBB seen. U tox positive for benzodiazepines. ?Patient was given bolus of Plavix, patient took baby aspirin at home, nicardipine 20 mg IV given x 1 in the ED. ? TSH 1.16, T4 1.52. Plan: -Admit to Telemetry -F/U MRI brain with stroke protocol. Patient has metallic rods in her back for back surgery at [facility] in 2016. Getting medical records for MRI compatibility. Otherwise, if neurology recommends CT brain to be repeated in next 24 hours we will follow with recommendations.. -Not a candidate for tPA given length of symptoms -Neuro Checks Q4 -Continue IV fluids -Aspiration precautions -No difficulty swallowing and swallow screen passed -DVT Prophylaxis with Heparin 5000 U Q8 -Head of bed 30 degrees -Tylenol PRN to avoid hyperthermia -Start Statin and Aspirin therapy -Neurology Dr. Cabrera consulted, recommendations appreciated -Ordered Echo with bubble -A1C ordered -Physical therapy evaluation #Hypertensive emergency ? Patient presented to the ED with blood pressure of 235/120. nicardipine 20 mg IV x 1 was not given. Plan ? Allowing permissive hypertension for first 24 hours ? Hydralazine 10 mg every 6 hourly as needed if SBP above 220 and DBP above 110 #Elevated troponin I, likely supply/demand ischemia ? Troponin I was elevated 0.064 on admission Plan: ? Troponin I every 6 hourly ? EKG showed sinus bradycardia with no acute ST-T changes. Incomplete RBBB. Patient denied any chest pain. #Mild euvolemic hyponatremia and hypochloremia ? Sodium 135, chloride 95 Plan: ? IV fluid resuscitation with NS #Asymptomatic pyuria ? Patient denied any symptoms of burning sensation or dysuria. Plan: ? No acute management required at this point #History of hypertension #History of hyperlipidemia ?Patient takes carvedilol 6.25 mg twice daily. She follows Dr Cabezas as outpatient. ?Patient takes simvastatin at home Plan: ? Allowing permissive hypertension for 24 hours ? Hydralazine 10 mg every 6 hourly as needed if SBP above 220 and DBP above 110 ? Follow-up with vitals ? Follow-up with lipid panel ? Continue atorvastatin 40 mg at bedtime and fenofibrate 48 mg once a day ? Holding patient's carvedilol 6.25 mg twice daily, amlodipine 5 mg once a day, HCTZ 12.5 mg once a day to allow permissive hypertension #History of depression ? Patient takes sertraline 50 mg at bedtime Plan: ? Resume home medications #History of back surgery post metallic rods for back surgery in 2016 ? Patient reported that she had back surgery in 2016 at [facility]. Plan: ? Getting old medical records to verify MRI compatibility Health maintenance Diet: Regular DVT prophylaxis: Heparin SC GI prophylaxis: Protonix 40 p.o. daily Disposition: Admitted for workup of TIA versus stroke. Patient was seen and discussed with attending physician, Dr. Nabil Sepulveda MD, PGY 3 Attending Provider Attestation/Addendum I, Luiza Ferrer, DO, attest that I was physically present for the katz portions of the service and evaluated the patient with the resident and I reviewed and discussed the case with the resident and agree with the resident's findings and plans of care as documented above Patient is an 89-year-old female with past medical history of hypertension, hyperlipidemia, hypothyroidism presented to the ED with sudden onset of visual changes in her left eye and involuntary movement of her right arm. Patient stated that she was feeling well the day prior to presentation. This morning, she woke up and went to the bathroom around 7 AM during which she was sitting on the toilet when she realized she could not control the movement of her right arm. She also complained of flashing light in the center of her visual field in her left eye. Patient stated that she went downstairs to the kitchen during which she stated it was a bit of a struggle due to disequilibrium. She also complained of dizziness. Upon presentation to the ED, a stroke alert was called. CT head and CTA head and neck were done during which no acute intracranial findings were found. Head and neck CTA did show 40 to 60% stenosis of left carotid bifurcation otherwise. Patient reported resolution of her symptoms since time of evaluation. She is also noted to have significantly elevated blood pressure with systolic in the 200s. Per daughter at bedside, patient is under quite a bit of stress as today is the date of her 's as well as recently receiving some bad news about a family member. Patient did seem to be a little tearful upon mention of this. She denies any previous episodes of similar symptoms in the past. She states that she takes her antihypertensives in the morning, but has not taken it this morning. She endorses having a headache currently, which may be secondary to her blood pressure. Will admit patient to telemetry for further workup and management of acute CVA. Patient does have a history of back surgery in the past, will obtain clearance for MRI compatibility. Will place patient on aspirin and statin and allow for permissive hypertension. Patient denies any active chest pain or shortness of breath. Will follow-up with rest of stroke workup.
--- NOTE | 2025-03-26 16:30 | PC.NURSE ---
PHARMACY CALLED FOR ORDERED AYANOR. PHARM TO BRING MED.
[2025-03-26 16:46] LABS: Troponin I 0.060 ng/mL (0.0-0.045)
[2025-03-26] MEDS: FENOFIBRATE 145 MG TABLET (NON-FORMULARY) 72.5 MG PO (17:36)
--- NOTE | 2025-03-26 18:02 | PC.NURSE ---
PER DR ARRIAZA, HOLD MRI UNTIL REPORTS ARE RECEIVED FROM [facility] CONFIRMING BACK CYRUS COMPATIBILITY. 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
[2025-03-26] MEDS: hydrALAZINE INJ 20 MG/ML VIAL 10 MG IVP (21:44)
[2025-03-26] MEDS: SERTRALINE HCL 25 MG TABLET 50 MG PO (21:46)
[2025-03-26] MEDS: ATORVASTATIN CALCIUM 20 MG TABLET 40 MG PO (21:46)
[2025-03-26 23:33] LABS: Troponin I 0.066 ng/mL (0.0-0.045)
[2025-03-27] VITALS (13 sets, daily range): BP systolic 162–193; BP diastolic 60–78; PULSE 60–76; RESP 13–98; TEMP 36.1–36.4; O2SAT 94–97
--- NOTE | 2025-03-27 00:08 | PD.VPROG1 ---
Telemedicine visit statement This visit was conducted with the use of phone was obtained on 03/27/25 at 0008. Documentation for date of: 03/27/25 Subjective Subjective Interval history: Patient is in telemetry today, c/o headache, could be from high BP. Virtual exam Vital Signs Temp Pulse Resp BP Pulse Ox O2 Del Method 97.7 F 69 16 180/73 H 97 Room Air 03/26/25 22:45 03/26/25 22:45 03/26/25 22:45 03/26/25 22:45 03/26/25 22:45 03/26/25 22:45 Objective Labs 03/26/25 07:40 03/26/25 07:40 Labs: Laboratory Results - last 24 hr 03/26/25 03/26/25 03/26/25 07:40 08:42 08:45 WBC 5.7 RBC 4.64 Hgb 13.7 Hct 39.1 MCV 84 MCH 29.5 MCHC 35.0 RDW Std Deviation 43.9 Plt Count 307 Neut % (Auto) 62 Lymph % (Auto) 25 Lipscomb % (Auto) 9 Eos % (Auto) 3 Baso % (Auto) 1 Neut # (Auto) 3.5 Lymph # (Auto) 1.4 Lipscomb # (Auto) 0.5 Eos # (Auto) 0.2 Baso # (Auto) 0.1 Immature Gran # (Auto) 0.02 H Absolute Nucleated RBC 0.00 Immature Gran % 0 Nucleated RBC % 0 PT 11.4 INR 1.0 APTT 29.1 Sodium 135 L Potassium 3.5 Chloride 95 L Carbon Dioxide 26.9 Anion Gap 13 BUN 18 Creatinine 0.9 Estim Creat Clear Calc Not Performed. eGFR > 60 BUN/Creatinine Ratio 20 Glucose 123 H Calculated Osmolality 273 L Calcium 9.5 Corrected Calcium 9.5 Magnesium 1.8 Total Bilirubin 0.5 Direct Bilirubin 0.1 AST 20 ALT 14 Alkaline Phosphatase 57 Troponin I 0.064 H* B-Natriuretic Peptide 109 H Total Protein 7.3 Albumin 4.5 Globulin 2.8 Albumin/Globulin Ratio 1.6 TSH 1.16 Free T4 1.52 Ur Collection Type Clean Catch Urine Color Colorless A Urine Clarity Clear Urine pH 7.5 H Ur Specific [place] 1.019 Urine Protein Trace Urine Glucose (UA) Negative Urine Ketones Negative Urine Blood Negative Urine Nitrite Positive Urine Bilirubin Negative Urine Urobilinogen (Auto) Negative Ur Leukocyte Esterase Positive Urine RBC 0 Urine WBC 19 H Ur Squamous Epith Cells < 1 Urine Bacteria None Urine Opiates Screen Negative Urine Fentanyl Screen Negative Ur Barbiturates Screen Negative U Amphetamin/Meth Scrn Negative U Benzodiazepines Scrn Positive A U Cocaine Metab Screen Negative U Marijuana (THC) Screen Negative Ethyl Alcohol < 3.0 03/26/25 03/26/25 03/26/25 10:52 16:10 22:24 WBC RBC Hgb Hct MCV MCH MCHC RDW Std Deviation Plt Count Neut % (Auto) Lymph % (Auto) [place]comb % (Auto) Eos % (Auto) Baso % (Auto) Neut # (Auto) Lymph # (Auto) Lipscomb # (Auto) Eos # (Auto) Baso # (Auto) Immature Gran # (Auto) Absolute Nucleated RBC Immature Gran % Nucleated RBC % PT INR APTT Sodium Potassium Chloride Carbon Dioxide Anion Gap BUN Creatinine Estim Creat Clear Calc eGFR BUN/Creatinine Ratio Glucose Calculated Osmolality Calcium Corrected Calcium Magnesium Total Bilirubin Direct Bilirubin AST ALT Alkaline Phosphatase Troponin I 0.060 H* 0.060 H* 0.066 H* B-Natriuretic Peptide Total Protein Albumin Globulin Albumin/Globulin Ratio TSH Free T4 Ur Collection Type Urine Color Urine Clarity Urine pH Ur Specific [place] Urine Protein Urine Glucose (UA) Urine Ketones Urine Blood Urine Nitrite Urine Bilirubin Urine Urobilinogen (Auto) Ur Leukocyte Esterase Urine RBC Urine WBC Ur Squamous Epith Cells Urine Bacteria Urine Opiates Screen Urine Fentanyl Screen Ur Barbiturates Screen U Amphetamin/Meth Scrn U Benzodiazepines Scrn U Cocaine Metab Screen U Marijuana (THC) Screen Ethyl Alcohol Assessment & Plan Problem List (1) Transient cerebral ischemia: Status: Resolved Assessment and plan: waiting for MRI brain no recurrent episode/no neuro deficit noted. continue with ASA and statin (2) Hypertension: Status: Chronic Assessment and plan: continue with aggressive BP control. High BP could be the cause for the CHAVEZ at present.
[2025-03-27] MEDS: MELATONIN 3 MG TABLET PO ×2 (00:20→20:22)
[2025-03-27] MEDS: DIAZEPAM 5 MG TABLET PO (00:25)
[2025-03-27] MEDS: ACETAMINOPHEN 325 MG TABLET 650 MG PO ×3 (02:22→20:21)
[2025-03-27] MEDS: LEVOTHYROXINE SODIUM 112 MCG TABLET PO (06:08)
[2025-03-27] MEDS: HEPARIN SOD INJ 5000 UNIT/ML VIAL SC ×3 (06:08→21:02)
[2025-03-27] MEDS: SODIUM CHLORIDE 0.9% 1000 ML 1,000 ML 100 ML IV (06:09)
[2025-03-27 06:12] LABS: Basophils # (Auto) 0.0 Thou/mm3 (0.0-0.2); Basophils % (Auto) 1 % (0-2.5); Eosinophils # (Auto) 0.1 Thou/mm3 (0.0-0.5); Eosinophils % (Auto) 1 % (0-10); Hematocrit 37.3 % (36.0-46.0); Hemoglobin 12.9 g/dL (12.0-16.0); Immature Granulocytes Auto 0.04 Thou/mm3 (0.00-0.00); Lymphocytes # (Auto) 1.3 Thou/mm3 (1.0-4.8); Lymphocytes % (Auto) 15 % (10-50); Mean Corpuscular HGB Conc 34.6 g/dl (31.0-37.0); Mean Corpuscular Hemoglobin 29.3 pg (25.0-35.0); Mean Corpuscular Volume 85 fL (80-100); Monocytes # (Auto) 0.5 Thou/mm3 (0.0-0.8); Monocytes % (Auto) 6 % (0-12); Neutrophils # (Auto) 6.8 Thou/mm3 (1.8-7.7); Neutrophils % (Auto) 77 % (37-80); Nucleated Red Blood Cell # 0.00 Thou/mm3 (0.00-0.00); Nucleated Red Blood Cell % 0 /100 WBC (0); Platelet Count 316 Thou/mm3 (140-440); RDW Standard Deviation 44.4 fL (36.4-46.3); Red Blood Count 4.40 Miln/mm3 (4.00-5.20); White Blood Count 8.8 Thou/mm3 (3.6-11.0)
[2025-03-27 06:37] LABS: INR 1.0 (0.9-1.3); Partial Thromboplastin Time 31.6 Seconds (22.0-36.0); Prothrombin Time 11.4 Seconds (9.0-12.2)
[2025-03-27 06:54] LABS: Alanine Aminotransferase 12 U/L (10-49); Alkaline Phosphatase 47 U/L (46-116); Anion Gap 12 (7-16); Aspartate Amino Transferase 21 U/L (0-34); BUN/Creatinine Ratio 14 Ratio (12-20); Bilirubin,Total 0.3 mg/dL (0.3-1.2); Blood Urea Nitrogen 10 mg/dL (9-23); Calcium 8.8 mg/dL (8.3-10.6); Carbon Dioxide 24.6 mMol/L (20.0-31.0); Cardiac Risk Estimate 4.9 RATIO (3.7-5.6); Chloride 99 mMol/L (98-107); Cholesterol 138 mg/dL (132-200); Creatinine (Component) 0.7 mg/dL (0.6-1.3); Estimated Creatinine Clearance 51.0 mL/min (>60); Glucose 139 mg/dL (74-106); HDL Cholesterol 28 mg/dL (40-60); LDL Cholesterol,Calculated 53 mg/dL (0-130); Magnesium 1.6 mg/dL (1.6-2.6); Osmolality,Calculated 272 (275-295); Phosphorous 2.7 mg/dL (2.4-5.1); Potassium 3.6 mMol/L (3.4-5.1); Sodium 136 mMol/L (136-145); Total Protein 6.5 gm/dL (5.7-8.2); Triglycerides 287 mg/dL (30-150); eGFR > 60 See Note
[2025-03-27 06:59] LABS: Albumin, Serum 3.9 gm/dL (3.4-4.8); Albumin/Globulin Ratio 1.5 (1.2-2.2); Calcium (Corrected) 8.9 mg/dL (8.5-10.1); Globulin 2.6 gm/dL (2.3-3.5)
[2025-03-27] MEDS: PANTOPRAZOLE 40 MG TABLET PO (08:28)
[2025-03-27] MEDS: ASPIRIN EC 81 MG TABEC PO (08:28)
--- NOTE | 2025-03-27 10:04 | PC.SS ---
This is 89-year-old, female who presented to the ED due to suffering from blurred vision and imbalance. Patient appeared alert and oriented to self, place and situation. Patient was pleasant, her mood and behavior were ordinary. Patient reports that she resides alone at home. Patient verified home address and phone number: [phone]. Patient is independent with all ADLs, no DME use. However, she does have a FWW at home. Patient assigned her daughter, Simi Squires, as her medical decision maker. Patient's PCP is Dr. Aiken. When medically clear, patient will return home, and her daughter, Simi will provide transportation. Plan of care: pending MRI. Discharge plan: Return home. Next of kin: Simi Shaw, daughter.
[2025-03-27] MEDS: FENOFIBRATE 145 MG TABLET (NON-FORMULARY) 72.5 MG PO (10:12)
--- NOTE | 2025-03-27 10:23 | ESPR_ITS ---
Documentation for date of: 03/27/25 Subjective Subjective Interval history: Patient seen and examined at bedside this morning. She denies any new or recurrent blurred vision, double vision, dizziness, headache, numbness, weakness, facial droop, chest pain, or shortness of breath. She is eating well, tolerating diet, no nausea or vomiting. No bowel movement yet but voiding with assistance, no falls. Chronic back pain unchanged. No urinary symptoms noted. MRI brain with stroke protocol pending ? neurology (Dr. Cabrera) recommends proceeding with MRI only and using Valium 5 mg PO for comfort if needed due to spinal rods. Echo with bubble still pending. Exam Vital Signs Temp Pulse Resp BP Pulse Ox O2 Del Method 97.2 F 65 23 H 180/75 H 96 Room Air 03/27/25 08:00 03/27/25 08:00 03/27/25 08:00 03/27/25 08:00 03/27/25 08:00 03/27/25 08:00 Narrative Exam GENERAL APPEARANCE: AxOx4, generally well-appearing female in no acute distress. HEENT: NC, AT. MMM. EOMI, clear conjunctiva, oropharynx clear. NECK: Supple without lymphadenopathy. No stiffness or restricted ROM. HEART: Regular rate and regular rhythm, normal S1/S2, no m/r/g LUNGS: CTAB, moving air well. No crackles or wheezes are heard. ABDOMEN: Soft, nontender, nondistended. BACK: No CVAT, no obvious deformity. EXTREMITIES: Without cyanosis, clubbing or edema. NEUROLOGICAL: Alert and oriented, moving all 4 extremities. Use walker for ambulation. Skin: Warm and dry without any rash. varicose veins both lower extremities. Psych: Appropriate mood and affect Objective Labs 03/28/25 04:53 03/28/25 04:53 Labs: Laboratory Results - last 24 hr 03/26/25 03/26/25 03/26/25 10:52 16:10 22:24 WBC RBC Hgb Hct MCV MCH MCHC RDW Std Deviation Plt Count Neut % (Auto) Lymph % (Auto) [place] % (Auto) Eos % (Auto) Baso % (Auto) Neut # (Auto) Lymph # (Auto) [place] # (Auto) Eos # (Auto) Baso # (Auto) Immature Gran # (Auto) Absolute Nucleated RBC Immature Gran % Nucleated RBC % PT INR APTT Sodium Potassium Chloride Carbon Dioxide Anion Gap BUN Creatinine Estim Creat Clear Calc eGFR BUN/Creatinine Ratio Glucose Calculated Osmolality Calcium Corrected Calcium Phosphorus Magnesium Total Bilirubin AST ALT Alkaline Phosphatase Troponin I 0.060 H* 0.060 H* 0.066 H* Total Protein Albumin Globulin Albumin/Globulin Ratio Triglycerides Cholesterol LDL Cholesterol, Calc HDL Cholesterol Cholesterol/HDL Ratio 03/27/25 05:45 WBC 8.8 D RBC 4.40 Hgb 12.9 Hct 37.3 MCV 85 MCH 29.3 MCHC 34.6 RDW Std Deviation 44.4 Plt Count 316 Neut % (Auto) 77 Lymph % (Auto) 15 [place] % (Auto) 6 Eos % (Auto) 1 Baso % (Auto) 1 Neut # (Auto) 6.8 Lymph # (Auto) 1.3 [place] # (Auto) 0.5 Eos # (Auto) 0.1 Baso # (Auto) 0.0 Immature Gran # (Auto) 0.04 H Absolute Nucleated RBC 0.00 Immature Gran % 1 H Nucleated RBC % 0 PT 11.4 INR 1.0 APTT 31.6 Sodium 136 Potassium 3.6 Chloride 99 Carbon Dioxide 24.6 Anion Gap 12 BUN 10 Creatinine 0.7 Estim Creat Clear Calc 51.0 L eGFR > 60 BUN/Creatinine Ratio 14 Glucose 139 H Calculated Osmolality 272 L Calcium 8.8 Corrected Calcium 8.9 Phosphorus 2.7 Magnesium 1.6 Total Bilirubin 0.3 AST 21 ALT 12 Alkaline Phosphatase 47 Troponin I Total Protein 6.5 Albumin 3.9 D Globulin 2.6 Albumin/Globulin Ratio 1.5 Triglycerides 287 H Cholesterol 138 LDL Cholesterol, Calc 53 HDL Cholesterol 28 L Cholesterol/HDL Ratio 4.9 Quality Measures Quality Measures VTE prophylaxis (Heparin SC) Advance care planning discussed with:: patient and child (Grandchild) Assessment & Plan Assessment Current Active Medications: Generic Name Dose Route Start Last Admin Trade Name Freq PRN Reason Stop Dose Admin Acetaminophen 650 mg 03/26/25 10:01 Acetaminophen 325 Mg Tablet PO 04/25/25 10:00 Q6H PRN Fever >101.5 Acetaminophen 650 mg 03/26/25 10:01 03/27/25 08:28 Acetaminophen 325 Mg Tablet PO 04/25/25 10:00 650 mg Q6H PRN Administration PAIN SCALE 1-3 (mild Amlodipine Besylate 5 mg 03/27/25 10:15 Amlodipine Besylate 5 Mg Tablet PO 04/26/25 10:14 BID LEAH Aspirin 81 mg 03/27/25 09:00 03/27/25 08:28 Aspirin Ec 81 Mg Tabec PO 04/26/25 08:59 81 mg QDAY LEAH Administration Atorvastatin Calcium 40 mg 03/26/25 21:00 03/26/25 21:46 Atorvastatin Calcium 20 Mg Tablet PO 04/25/25 20:59 40 mg HS LEAH Administration Carvedilol 6.25 mg 03/27/25 10:15 Carvedilol 12.5 Mg Tablet PO 04/26/25 10:14 BID LEAH Diazepam 5 mg 03/26/25 15:51 03/27/25 00:25 Diazepam 5 Mg Tablet PO 03/31/25 15:59 5 mg QDAY PRN Administration ANXIETY Fenofibrate 72.5 mg 03/26/25 16:00 03/27/25 10:12 Fenofibrate 145 Mg Tablet (Non-Formulary) PO 04/25/25 15:59 72.5 mg QDAY LEAH Administration Heparin Sodium (Porcine) 5,000 unit 03/26/25 14:00 03/27/25 06:08 Heparin Sod Inj 5000 Unit/Ml Vial SC 04/09/25 13:59 5,000 unit Q8HR LEAH Administration Hydralazine HCl 10 mg 03/26/25 10:01 03/26/25 21:44 Hydralazine Inj 20 Mg/Ml Vial IVP 04/25/25 10:14 10 mg Q6H PRN Administration Give if SBP>220 AND DBP>120 Sodium Chloride 1,000 mls @ 100 mls/hr 03/26/25 07:45 03/27/25 06:09 Ns IV 04/25/25 07:44 100 mls/hr Q10H LEAH Administration Levothyroxine Sodium 112 mcg 03/27/25 06:00 03/27/25 06:08 Levothyroxine Sodium 112 Mcg Tablet PO 04/26/25 05:59 112 mcg ACBR LEAH Administration Melatonin 3 mg 03/27/25 00:05 03/27/25 00:20 Melatonin 3 Mg Tablet PO 04/26/25 00:04 3 mg HS LEAH Administration Ondansetron HCl 4 mg 03/26/25 07:33 Ondansetron Inj 2 Mg/Ml Inj 2 Ml IVP 04/25/25 07:32 Q4HR PRN NAUSEA OR VOMITING Pantoprazole Sodium 40 mg 03/26/25 10:15 03/27/25 08:28 Pantoprazole 40 Mg Tablet PO 04/25/25 10:14 40 mg QDAY LEAH Administration Sennosides 1 tab 03/26/25 10:01 Senna Tablet PO 04/25/25 10:00 QDAY PRN constipation Protocol Sertraline HCl 50 mg 03/26/25 21:00 03/26/25 21:46 Sertraline Hcl 25 Mg Tablet PO 04/25/25 20:59 50 mg HS LEAH Administration Plan This patient is an 89-year-old female with past medical history of hypertension, hyperlipidemia, and hypothyroidism who presented to the ED on 03/26/2025 with blurred vision and imbalance. She is admitted for stroke workup. #Stroke versus TIA workup * Presented with transient blurred vision and imbalance, resolved by arrival. No recurrent neuro symptoms since. 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 * EKG with sinus bradycardia, incomplete RBBB, no acute ST-T changes. * MRI brain with stroke protocol planned ? Dr. Cabrera recommends proceeding with MRI only, give Valium 5?mg PO for comfort if needed due to back rods. * Neuro checks Q4. * Echo with bubble ordered, awaiting cardiology read. * Started on ASA and statin per neuro. * A1C ordered. * PT eval pending. #Hypertensive urgency/emergency * Presented with BP 235/120 in ED, now 180/75. Nicardipine discontinued. * Restarted home amlodipine 5?mg daily and carvedilol 6.25?mg BID. * HCTZ remains on hold. * PRN hydralazine if SBP >220 or DBP >110. #Elevated troponin I (likely demand ischemia) * Initial troponin 0.064, stable on repeat. * Cardiology consulted, echo with bubble pending, awaiting further recs. * No chest pain or new EKG changes. * Repeat troponin ordered. * Await echo. #Mild euvolemic hyponatremia / hypochloremia * Na 135, Cl 95 ? stable. * DC IV NS. #Asymptomatic pyuria * UA showed gram negative jaciel. * On ceftriaxone. * No urinary symptoms #History of HTN / HLD * Continue atorvastatin 40 mg QHS, fenofibrate 48 mg daily. * BP meds adjusted as above. * Follow lipid panel. #History of depression * Continue sertraline 50 mg QHS. #History of back surgery (metal rods, [place] 2016) * Continue to verify old records for MRI safety. Health maintenance * Diet: Regular. * DVT prophylaxis: Heparin SC. * GI prophylaxis: Protonix 40mg PO daily. * Disposition: Continue workup for TIA vs stroke; monitor BP, troponins, echo, MRI/CT as indicated. * Code: Full ----- Plan discussed with attending physician Dr. Nabil Dodson MD PGY-1 Internal Medicine Attending Provider Attestation/Addendum I, Luiza Ferrer DO, attest that I was physically present for the katz portions of the service and evaluated the patient with the resident and I reviewed and discussed the case with the resident and agree with the resident's findings and plans of care as documented above Patient seen and eval this a.m. No acute events overnight. Patient states that her symptoms have resolved and no further episodes of involuntary movement of right hand or flashing lights in the left visual field. Patient's blood pressure remains elevated. Will restart home antihypertensives. Pending MRI and echocardiogram. Will follow-up with neurology recommendations. Will uptitrate antihypertensives as needed. Continue with aspirin and statin at this time for secondary stroke prophylaxis.
[2025-03-27 11:22] LABS: Troponin I 0.045 ng/mL (0.0-0.045)
[2025-03-27] MEDS: ATORVASTATIN CALCIUM 20 MG TABLET 40 MG PO (20:20)
[2025-03-27] MEDS: SERTRALINE HCL 25 MG TABLET 50 MG PO (20:20)
--- NOTE | 2025-03-27 23:56 | ESPR_ITS ---
Documentation for date of: 03/27/25 Subjective Subjective Interval history: Patient was seen in telemetry today at the bedside. She presented with a TIA like symptoms. No recurrence of similar symptoms after admission. She is waiting for MRI brain Exam - Neurology Vital Signs Temp Pulse Resp BP Pulse Ox O2 Del Method 97.5 F 66 17 189/76 H 94 L Room Air 03/27/25 21:15 03/27/25 20:22 03/27/25 20:00 03/27/25 20:22 03/27/25 20:00 03/27/25 20:00 Narrative Exam GENERAL APPEARANCE: Well hydrated, well-nourished in no acute distress. HEENT: Normocephalic, atraumatic, extraocular movements intact. Pupils: Equal reacting to light and accommodation NECK: Supple, no JVD or bruits. CARDIOVASULAR: Heart: S1, S2 heard, regular without S3-S4 or murmur no rubs or gallops. LUNGS/CHEST: Clear to auscultation bilaterally. No rails, rhonchi, or wheezing. Normal inspection. ABDOMEN: Soft, nontender, with normal bowel sounds. No pulsatile masses. No rebound, rigidity, or guarding. Normal inspection and palpation. EXTREMITIES: Normal inspection and palpation. No edema, clubbing or cyanosis. SKIN: Warm and dry without rashes. Normal inspection. MUSCULOSKELETAL: No cervical, thoracic, lumbar or midline bony tenderness. Normal inspection. NEURO: Alert, awake and oriented x3. Cranial nerves: II through XII grossly intact. Speech and language: Normal with no dysarthria or dysphasia. Motor system: Tone and bulk: Normal: Strength: 5 out of 5 in all 4 extremities; No pronator drift noted. Deep tendon reflexes: 2+ bilaterally symmetrical. Plantar reflex: Downgoing bilaterally. Sensory system: Intact to all modalities of sensation bilaterally. Coordination: Intact to [id number] and [id number] test bilaterally. No ataxia, no dysmetria, or dysdiadochokinesia noted. No intention tremors noted. Gait: Normal. No signs of meningeal irritation noted. PSYCHIATRIC: Normal mood and affect. Denies homicidal or suicidal ideation. Objective Labs 03/27/25 05:45 03/27/25 05:45 Labs: Laboratory Results - last 24 hr 03/27/25 05:45 WBC 8.8 D RBC 4.40 Hgb 12.9 Hct 37.3 MCV 85 MCH 29.3 MCHC 34.6 RDW Std Deviation 44.4 Plt Count 316 Neut % (Auto) 77 Lymph % (Auto) 15 [place] % (Auto) 6 Eos % (Auto) 1 Baso % (Auto) 1 Neut # (Auto) 6.8 Lymph # (Auto) 1.3 [place] # (Auto) 0.5 Eos # (Auto) 0.1 Baso # (Auto) 0.0 Immature Gran # (Auto) 0.04 H Absolute Nucleated RBC 0.00 Immature Gran % 1 H Nucleated RBC % 0 PT 11.4 INR 1.0 APTT 31.6 Sodium 136 Potassium 3.6 Chloride 99 Carbon Dioxide 24.6 Anion Gap 12 BUN 10 Creatinine 0.7 Estim Creat Clear Calc 51.0 L eGFR > 60 BUN/Creatinine Ratio 14 Glucose 139 H Calculated Osmolality 272 L Calcium 8.8 Corrected Calcium 8.9 Phosphorus 2.7 Magnesium 1.6 Total Bilirubin 0.3 AST 21 ALT 12 Alkaline Phosphatase 47 Troponin I 0.045 Total Protein 6.5 Albumin 3.9 D Globulin 2.6 Albumin/Globulin Ratio 1.5 Triglycerides 287 H Cholesterol 138 LDL Cholesterol, Calc 53 HDL Cholesterol 28 L Cholesterol/HDL Ratio 4.9 Assessment & Plan Assessment and plan (1) Transient cerebral ischemia: Status: Resolved Assessment and plan: Follow-up with MRI brain tomorrow Continue with aspirin and statin (2) Hypertension: Status: Chronic Assessment and plan: Continue with aggressive blood pressure management
[2025-03-28] VITALS (17 sets, daily range): BP systolic 144–195; BP diastolic 56–82; PULSE 56–72; RESP 15–95; TEMP 36.1–36.4; O2SAT 94–99; BMI 14.0
--- NOTE | 2025-03-28 | XR_ITS ---
Examinations: MRI Brain without intravenous contrast. MRA brain without intravenous contrast. MRA carotids without intravenous contrast 3-D vascular reconstructions Date and time of exam: March 28, 2025 0822 hours INDICATIONS: Stroke alert March 26, 2025, onset focal neurologic deficit, blurred vision, diplopia, ataxia, difficulty walking Technique: Multiple axial and sagittal images of the brain have been obtained MRA brain carotid images without contrast obtained, including 3-D postprocessing, vascular maximum intensity projection images Findings: [place] is not enlarged. The optic chiasm and infundibular stalk are not remarkable. Prepontine and interpeduncular cisterns are not enlarged. No localized enlargement of the medulla or mercedes. Fourth ventricle and cerebellar tonsils normal in position. Subacute hemorrhage is not seen. Fourth ventricle is midline. Mass in the cerebellopontine angle region is not evident. 7th and 8th nerve complexes exhibits symmetry. Globes are symmetrical with no retro-orbital mass. Increased white matter signal prominent Diffusion-weighted images demonstrate 8 mm focus restricted diffusion right occipital lobe but without matching signal deficit on the ADC map Mass-effect upon the ventricular system is not identified. MRA carotid images degraded by patient motion. Impression: 8mm focus restricted diffusion right occipital lobe on the diffusion images but without matching signal deficit on the ADC map Multiple foci increased signal throughout the white matter, differential would include chronic microvascular white matter disease, demyelinating disease, clinical correlation advised
[2025-03-28] MEDS: LEVOTHYROXINE SODIUM 112 MCG TABLET PO (05:22)
[2025-03-28] MEDS: HEPARIN SOD INJ 5000 UNIT/ML VIAL SC ×3 (05:22→22:03)
[2025-03-28 06:25] LABS: Basophils # (Auto) 0.1 Thou/mm3 (0.0-0.2); Basophils % (Auto) 1 % (0-2.5); Eosinophils # (Auto) 0.2 Thou/mm3 (0.0-0.5); Eosinophils % (Auto) 3 % (0-10); Hematocrit 38.0 % (36.0-46.0); Hemoglobin 12.9 g/dL (12.0-16.0); Immature Granulocytes Auto 0.03 Thou/mm3 (0.00-0.00); Lymphocytes # (Auto) 1.9 Thou/mm3 (1.0-4.8); Lymphocytes % (Auto) 27 % (10-50); Mean Corpuscular HGB Conc 33.9 g/dl (31.0-37.0); Mean Corpuscular Hemoglobin 29.8 pg (25.0-35.0); Mean Corpuscular Volume 88 fL (80-100); Monocytes # (Auto) 0.6 Thou/mm3 (0.0-0.8); Monocytes % (Auto) 8 % (0-12); Neutrophils # (Auto) 4.4 Thou/mm3 (1.8-7.7); Neutrophils % (Auto) 61 % (37-80); Nucleated Red Blood Cell # 0.00 Thou/mm3 (0.00-0.00); Nucleated Red Blood Cell % 0 /100 WBC (0); Platelet Count 325 Thou/mm3 (140-440); RDW Standard Deviation 46.3 fL (36.4-46.3); Red Blood Count 4.33 Miln/mm3 (4.00-5.20); White Blood Count 7.2 Thou/mm3 (3.6-11.0)
[2025-03-28 06:44] LABS: Alanine Aminotransferase 10 U/L (10-49); Albumin, Serum 4.1 gm/dL (3.4-4.8); Albumin/Globulin Ratio 1.6 (1.2-2.2); Alkaline Phosphatase 49 U/L (46-116); Anion Gap 9 (7-16); Aspartate Amino Transferase 18 U/L (0-34); BUN/Creatinine Ratio 17 Ratio (12-20); Bilirubin,Total 0.4 mg/dL (0.3-1.2); Blood Urea Nitrogen 12 mg/dL (9-23); Calcium 9.5 mg/dL (8.3-10.6); Calcium (Corrected) 9.5 mg/dL (8.5-10.1); Carbon Dioxide 25.0 mMol/L (20.0-31.0); Chloride 101 mMol/L (98-107); Creatinine (Component) 0.7 mg/dL (0.6-1.3); Estimated Creatinine Clearance 51.0 mL/min (>60); Globulin 2.6 gm/dL (2.3-3.5); Glucose 126 mg/dL (74-106); Magnesium 1.7 mg/dL (1.6-2.6); Osmolality,Calculated 271 (275-295); Phosphorous 2.9 mg/dL (2.4-5.1); Potassium 3.9 mMol/L (3.4-5.1); Sodium 135 mMol/L (136-145); Total Protein 6.7 gm/dL (5.7-8.2); eGFR > 60 See Note
[2025-03-28] MEDS: PANTOPRAZOLE 40 MG TABLET PO (08:11)
[2025-03-28] MEDS: ASPIRIN EC 81 MG TABEC PO (08:12)
[2025-03-28] MEDS: DIAZEPAM 5 MG TABLET PO (08:12)
[2025-03-28] MEDS: FENOFIBRATE 145 MG TABLET (NON-FORMULARY) 72.5 MG PO (08:12)
[2025-03-28] MEDS: POLYETHYLENE GLYCOL 17 GM PACKET PO (08:12)
--- NOTE | 2025-03-28 10:03 | ECHO_ITS ---
Transthoracic Echo Report Ht (in): 62 Wt (lb): 145 Exam Location: Echo Lab Status: Inpatient [employer] T[employer] Engineer: Aria Ross Indications: Procedure Performed: BP: 189 / 76 HR: 57 Technical Quality: Technically Difficult MEASUREMENTS (Male / Female) Normal Values 2D ECHO LV Diastolic Diameter PLAX 3.9 cm 4.2 - 5.9 / 3.9 - 5.3 cm LV Systolic Diameter PLAX 2.4 cm IVS Diastolic Thickness 1.2 cm 0.6 - 1.0 / 0.6 - 0.9 cm LVPW Diastolic Thickness 1.3 cm 0.6 - 1.0 / 0.6 - 0.9 cm LV Relative Wall Thickness 0.6 LVOT Diameter 1.9 cm LA Volume Index 34.6 cm?/m? 16 - 28 cm?/m? Ascending Aorta Diameter 2.7 cm DOPPLER AV Peak Velocity 127.0 cm/s AV Peak Gradient 6.5 mmHg LVOT Peak Velocity 116.0 cm/s LVOT Peak Gradient 5.4 mmHg AV Area Cont Eq pk 2.6 cm? PV Peak Velocity 93.7 cm/s PV Peak Gradient 3.5 mmHg FINDINGS Left Ventricle Normal left ventricular size and systolic function with no obvious regional wall motion abnormalities. Mild venricular septal hypertrophy.Normal left ventricular diastolic filling pattern for age. The ejection fraction is visually estimated at 65 %. Right Ventricle The right ventricle is normal in size and systolic function. The estimated right ventricular systolic pressure can not be determined due to innadequate tricuspid signal. Left Atrium The left atrium is normal by two-dimensional, color flow and Doppler imaging with no structural abnormalities, no thrombus formation present. Right Atrium The right atrium is normal by two-dimensional imaging, color flow and Doppler imaging with no structural abnormalities, no thrombus formation present. Atrial Septum The interatrial septum appears normal with no evidence of a shunt. Bubble study negative for PFO/ASD. Aorta The aorta is normal by two-dimensional, color flow and Doppler interrogation. Mitral Valve The mitral valve is normal by two-dimensional, color flow and Doppler interrogation. There is trace mitral regurgitation. Aortic Valve The aortic valve is trileaflet and normal by two-dimensional, color flow and Doppler interrogation. There is no significant aortic valve regurgitation. Tricuspid Valve The tricuspid valve is normal by two-dimensional, color flow and Doppler interrogation. There is no significant tricuspid valve regurgitation. Pulmonic Valve The pulmonic valve is not well visualized. There is no significant pulmonic valve regurgitation. Vessels The pulmonary artery appears normal. The inferior vena cava pulmonary and hepatic veins appear normal. Pericardium The pericardium is normal by two-dimensional imaging. There is no significant pericardial effusion. CONCLUSIONS Indications: Temporary Vision Loss Negative bubble study no evodence of PFO [place] LV size and function , Estimated EF 65%. Mild LVH. RV Normal. Trace MR. No Pericardial Effusion. Gauri Schneider (Electronically Signed) Final Date: 28 March 2025 13:53
[2025-03-28] MEDS: Magnesium Sulfate 2 GM Ivpb 2 GM/50 ML BAG IV (10:34)
--- NOTE | 2025-03-28 14:38 | PC.SS ---
SS follow up note; Patient is pending an MRI and Cardio Rec's. BP being monitored, patient will discharge home when medically cleared.
[2025-03-28] MEDS: CLOPIDOGREL BISULFATE 75 MG TABLET PO (15:01)
--- NOTE | 2025-03-28 15:41 | ESPR_ITS ---
Documentation for date of: 03/28/25 Subjective Subjective Interval history: No overnight events. Patient seen and examined at bedside, resting comfortably. No focal neurological deficits. Patient denies chest pain, headache, dizziness, SOB, nausea, vomiting, visual deficits. Stroke in occipital region seen on MRI. BP remain elevated, changed medications, improved. Pending MRI. Exam Vital Signs Temp Pulse Resp BP Pulse Ox O2 Del Method 97.5 F 62 18 148/82 H 94 L Room Air 03/28/25 12:00 03/28/25 15:00 03/28/25 12:08 03/28/25 15:00 03/28/25 12:00 03/28/25 12:00 Narrative Exam GENERAL APPEARANCE: AxOx4, generally well-appearing female in no acute distress. HEENT: NC, AT. MMM. EOMI, clear conjunctiva, oropharynx clear. NECK: Supple without lymphadenopathy. No stiffness or restricted ROM. HEART: Regular rate and regular rhythm, normal S1/S2, no m/r/g LUNGS: CTAB, moving air well. No crackles or wheezes are heard. ABDOMEN: Soft, nontender, nondistended. BACK: No CVAT, no obvious deformity. EXTREMITIES: Without cyanosis, clubbing or edema. NEUROLOGICAL: Alert and oriented, moving all 4 extremities. Use walker for ambulation. Skin: Warm and dry without any rash. varicose veins both lower extremities. Psych: Appropriate mood and affect Objective Labs 03/29/25 05:52 03/29/25 05:52 Labs: Laboratory Results - last 24 hr 03/28/25 04:53 WBC 7.2 RBC 4.33 Hgb 12.9 Hct 38.0 MCV 88 MCH 29.8 MCHC 33.9 RDW Std Deviation 46.3 Plt Count 325 Neut % (Auto) 61 Lymph % (Auto) 27 [place] % (Auto) 8 Eos % (Auto) 3 Baso % (Auto) 1 Neut # (Auto) 4.4 Lymph # (Auto) 1.9 [place] # (Auto) 0.6 Eos # (Auto) 0.2 Baso # (Auto) 0.1 Immature Gran # (Auto) 0.03 H Absolute Nucleated RBC 0.00 Immature Gran % 0 Nucleated RBC % 0 Sodium 135 L Potassium 3.9 Chloride 101 Carbon Dioxide 25.0 Anion Gap 9 BUN 12 Creatinine 0.7 Estim Creat Clear Calc 51.0 L eGFR > 60 BUN/Creatinine Ratio 17 Glucose 126 H Calculated Osmolality 271 L Calcium 9.5 Corrected Calcium 9.5 Phosphorus 2.9 Magnesium 1.7 Total Bilirubin 0.4 AST 18 ALT 10 Alkaline Phosphatase 49 Total Protein 6.7 Albumin 4.1 Globulin 2.6 Albumin/Globulin Ratio 1.6 Quality Measures Quality Measures VTE prophylaxis (Heparin SC) Advance care planning discussed with:: patient Assessment & Plan Assessment Current Active Medications: Generic Name Dose Route Start Last Admin Trade Name Freq PRN Reason Stop Dose Admin Acetaminophen 650 mg 03/26/25 10:01 03/27/25 20:21 Acetaminophen 325 Mg Tablet PO 04/25/25 10:00 650 mg Q6H PRN Administration Fever >101.5 Acetaminophen 650 mg 03/26/25 10:01 03/27/25 08:28 Acetaminophen 325 Mg Tablet PO 04/25/25 10:00 650 mg Q6H PRN Administration PAIN SCALE 1-3 (mild Amlodipine Besylate 10 mg 03/28/25 21:00 Amlodipine Besylate 5 Mg Tablet PO 04/27/25 20:59 BID LEAH Aspirin 81 mg 03/27/25 09:00 03/28/25 08:12 Aspirin Ec 81 Mg Tabec PO 04/26/25 08:59 81 mg QDAY LEAH Administration Atorvastatin Calcium 40 mg 03/26/25 21:00 03/27/25 20:20 Atorvastatin Calcium 20 Mg Tablet PO 04/25/25 20:59 40 mg HS LEAH Administration Carvedilol 12.5 mg 03/28/25 21:00 Carvedilol 12.5 Mg Tablet PO 04/27/25 20:59 BID LEAH Clopidogrel Bisulfate 75 mg 03/28/25 14:45 03/28/25 15:01 Clopidogrel Bisulfate 75 Mg Tablet PO 04/27/25 14:44 75 mg QDAY LEAH Administration Diazepam 5 mg 03/26/25 15:51 03/28/25 08:12 Diazepam 5 Mg Tablet PO 03/31/25 15:59 5 mg QDAY PRN Administration ANXIETY Fenofibrate 72.5 mg 03/26/25 16:00 03/28/25 08:12 Fenofibrate 145 Mg Tablet (Non-Formulary) PO 04/25/25 15:59 72.5 mg QDAY LEAH Administration Heparin Sodium (Porcine) 5,000 unit 03/26/25 14:00 03/28/25 13:06 Heparin Sod Inj 5000 Unit/Ml Vial SC 04/09/25 13:59 5,000 unit Q8HR LEAH Administration Hydralazine HCl 10 mg 03/28/25 14:15 03/28/25 15:00 Hydralazine Hcl 10 Mg Tablet PO 04/27/25 14:14 10 mg TID LEAH Administration Levothyroxine Sodium 112 mcg 03/27/25 06:00 03/28/25 05:22 Levothyroxine Sodium 112 Mcg Tablet PO 04/26/25 05:59 112 mcg ACBR LEAH Administration Melatonin 3 mg 03/27/25 00:05 03/27/25 20:22 Melatonin 3 Mg Tablet PO 04/26/25 00:04 3 mg HS LEAH Administration Ondansetron HCl 4 mg 03/26/25 07:33 Ondansetron Inj 2 Mg/Ml Inj 2 Ml IVP 04/25/25 07:32 Q4HR PRN NAUSEA OR VOMITING Pantoprazole Sodium 40 mg 03/26/25 10:15 03/28/25 08:11 Pantoprazole 40 Mg Tablet PO 04/25/25 10:14 40 mg QDAY LEAH Administration Polyethylene Glycol 17 gm 03/28/25 09:00 03/28/25 08:12 Polyethylene Glycol 17 Gm Packet PO 04/27/25 08:59 17 gm QDAY LEAH Administration Sennosides 1 tab 03/26/25 10:01 Senna Tablet PO 04/25/25 10:00 QDAY PRN constipation Protocol Sertraline HCl 50 mg 03/26/25 21:00 03/27/25 20:20 Sertraline Hcl 25 Mg Tablet PO 04/25/25 20:59 50 mg HS LEAH Administration Plan This patient is an 89-year-old female with past medical history of hypertension, hyperlipidemia, and hypothyroidism who presented to the ED on 03/26/2025 with blurred vision and imbalance. She is admitted for stroke workup. #Stroke versus TIA workup Presented with transient blurred vision and imbalance, resolved by arrival. No recurrent neuro symptoms since. Head CT showed no acute changes; CTA head/neck showed 40?60% stenosis at left carotid bifurcation. EKG with sinus bradycardia, incomplete RBBB, no acute ST-T changes. Echo w/ bubble study unremarkable. MRI showed occipital lobe infarct. Plan: - Neuro checks Q4. - Started on ASA and statin per neuro. - PT eval - Neurology consulted, appreciate recommendations - aggressive BP management #Hypertensive urgency/emergency Presented with BP 235/120 in ED, now 180/75. Nicardipine discontinued. Restarted home amlodipine 5mg daily and carvedilol 6.25mg BID. Held HCTZ. BP remained elevated despite treatment, made changes as below Plan: - Amlodipine 10mg PO daily - Coreg 12.5mg PO daily - Hydralazine 10mg PO TID #Elevated troponin I (likely demand ischemia) Initial troponin 0.064, stable on repeat. No chest pain or new EKG changes. Plan: - Echo negative - Cardiology consulted, appreciate recommendations #Mild euvolemic hyponatremia / hypochloremia Na 135, Cl 95 ? stable. DC IV NS. Plan: - Monitor - Avoid NS if possible #Asymptomatic pyuria UA showed gram negative jaciel. No urinary symptoms. Plan: - monitor for signs of infection #History of HTN / HLD * Continue atorvastatin 40 mg QHS, fenofibrate 48 mg daily. * BP meds adjusted as above. * Follow lipid panel. #History of depression * Continue sertraline 50 mg QHS. Health maintenance * Diet: Regular. * DVT prophylaxis: Heparin SC. * GI prophylaxis: Protonix 40mg PO daily. * Disposition: Continue workup for TIA vs stroke; monitor BP, troponins, echo, MRI/CT as indicated. * Code: Full Plan of care discussed with attending Dr. Ferrer. Spike Allison MD PGY-2 Attending Provider Attestation/Addendum Luiza Oshea DO, attest that I was physically present for the aktz portions of the service and evaluated the patient with the resident and I reviewed and discussed the case with the resident and agree with the resident's findings and plans of care as documented above Patient seen and eval this a.m. She was noted to have a stroke in right occipital region noted on MRI. Pending echocardiogram today. Patient denies any active chest pain throughout this hospitalization. Blood pressure remains elevated. Will increase antihypertensives from amlodipine 5 mg to 10 mg, carvedilol 6.25 to 12.5 mg p.o. twice daily. If blood pressure remains elevated, will add hydralazine 10 mg p.o. 3 times daily. Patient is to continue with aspirin, Plavix and statin due to carotid stenosis and secondary stroke prophylaxis.
--- NOTE | 2025-03-28 20:03 | PD.RESPRO ---
Documentation for date of: 03/28/25 Subjective Subjective Interval history: Patient seen at bedside, no new symptoms reported today. Reports complete return to baseline with resolution of initial TIA symptoms Exam Vital Signs Temp Pulse Resp BP Pulse Ox O2 Del Method 97.0 F 70 19 157/67 H 96 Room Air 03/28/25 16:00 03/28/25 16:00 03/28/25 16:00 03/28/25 16:00 03/28/25 16:00 03/28/25 16:00 Narrative Exam General: No acute distress, well nourished Eye: PERRL, EOMI, normal conjunctiva, no scleral icterus HENT: Normocephalic, atraumatic, hearing intact to conversation at normal volume, moist oral mucosa Neck: Supple, non-tender, no JVD, no lymphadenopathy Lungs: Non-labored respirations, symmetric chest rise Heart: Peripheral pulses intact bilaterally Abdomen: Soft, non-tender, non-distended Musculoskeletal: Normal range of motion and strength Skin: Skin is warm, dry, no rashes or lesions. Psychiatric: Cooperative, appropriate mood and affect Neurologic: Mental status: Orientation: Oriented to person, place, time, and situation Communication: Patient is cooperative and can follow simple instructions Language: Speech fluent, normal rate and volume, comprehension intact Cranial nerves: CN II: Visual lim intact CN III: Pupils equal, round, and reactive to light CN III, IV, : No gaze deviation, no nystagmus Horizontal pursuit: intact Vertical pursuit: intact Ptosis: none CN V: Facial sensation to light touch intact bilaterally at the forehead, cheeks, and jaw line CN VII: Face symmetric, no facial droop appreciated CN VIII: Able to hear and respond to conversation at normal volume, intact to finger rub CN IX, X: Palate elevation symmetric, uvula midline CN XI: Head turn and shoulder shrug strong, symmetric bilaterally CN XII: Normal tongue protrusion without deviation, no fasciculations Motor: Normal bulk and tone No atrophy No abnormal movements or fasciculations Muscle strength: Shoulder abduction: R 5/5 L 5/5 Elbow flexion: R 5/5 L 5/5 Elbow extension: R 5/5 L 5/5 Hip flexion: R 5/5 L 5/5 Hip extension: R 5/5 L 5/5 Sensory: RUE: Light touch intact LUE: Light touch intact RLE: Light touch intact LLE: Light touch intact Reflexes: Biceps (C5-6): R 2+ L 2+ Brachioradialis (C5-6): R 2+ L 2+ Triceps (C7-8): R 2+ L 2+ Patellae (L3-4): R 2+ L 2+ No clonus Plantar reflex downgoing bilaterally Cerebellum: RUE: No dysmetria (finger to nose), no dysdiadochokinesia (rapid alternating movements) LUE: No dysmetria (finger to nose), no dysdiadochokinesia (rapid alternating movements) RLE: No dysmetria (heel to caballero) LLE: No dysmetria (heel to caballero) Gait: Deferred Objective Labs 03/29/25 05:52 03/29/25 05:52 Labs: Laboratory Results - last 24 hr 03/28/25 04:53 WBC 7.2 RBC 4.33 Hgb 12.9 Hct 38.0 MCV 88 MCH 29.8 MCHC 33.9 RDW Std Deviation 46.3 Plt Count 325 Neut % (Auto) 61 Lymph % (Auto) 27 [place] % (Auto) 8 Eos % (Auto) 3 Baso % (Auto) 1 Neut # (Auto) 4.4 Lymph # (Auto) 1.9 [place] # (Auto) 0.6 Eos # (Auto) 0.2 Baso # (Auto) 0.1 Immature Gran # (Auto) 0.03 H Absolute Nucleated RBC 0.00 Immature Gran % 0 Nucleated RBC % 0 Sodium 135 L Potassium 3.9 Chloride 101 Carbon Dioxide 25.0 Anion Gap 9 BUN 12 Creatinine 0.7 Estim Creat Clear Calc 51.0 L eGFR > 60 BUN/Creatinine Ratio 17 Glucose 126 H Calculated Osmolality 271 L Calcium 9.5 Corrected Calcium 9.5 Phosphorus 2.9 Magnesium 1.7 Total Bilirubin 0.4 AST 18 ALT 10 Alkaline Phosphatase 49 Total Protein 6.7 Albumin 4.1 Globulin 2.6 Albumin/Globulin Ratio 1.6 Quality Measures Quality Measures VTE prophylaxis (Heparin SC) Advance care planning discussed with:: patient Assessment & Plan Assessment Current Active Medications: Generic Name Dose Route Start Last Admin Trade Name Freq PRN Reason Stop Dose Admin Acetaminophen 650 mg 03/26/25 10:01 03/27/25 20:21 Acetaminophen 325 Mg Tablet PO 04/25/25 10:00 650 mg Q6H PRN Administration Fever >101.5 Acetaminophen 650 mg 03/26/25 10:01 03/27/25 08:28 Acetaminophen 325 Mg Tablet PO 04/25/25 10:00 650 mg Q6H PRN Administration PAIN SCALE 1-3 (mild Amlodipine Besylate 10 mg 03/28/25 21:00 Amlodipine Besylate 5 Mg Tablet PO 04/27/25 20:59 BID LEAH Aspirin 81 mg 03/27/25 09:00 03/28/25 08:12 Aspirin Ec 81 Mg Tabec PO 04/26/25 08:59 81 mg QDAY LEAH Administration Atorvastatin Calcium 40 mg 03/26/25 21:00 03/27/25 20:20 Atorvastatin Calcium 20 Mg Tablet PO 04/25/25 20:59 40 mg HS LEAH Administration Carvedilol 12.5 mg 03/28/25 21:00 Carvedilol 12.5 Mg Tablet PO 04/27/25 20:59 BID LEAH Clopidogrel Bisulfate 75 mg 03/28/25 14:45 03/28/25 15:01 Clopidogrel Bisulfate 75 Mg Tablet PO 04/27/25 14:44 75 mg QDAY LEAH Administration Diazepam 5 mg 03/26/25 15:51 03/28/25 08:12 Diazepam 5 Mg Tablet PO 03/31/25 15:59 5 mg QDAY PRN Administration ANXIETY Fenofibrate 72.5 mg 03/26/25 16:00 03/28/25 08:12 Fenofibrate 145 Mg Tablet (Non-Formulary) PO 04/25/25 15:59 72.5 mg QDAY LEAH Administration Heparin Sodium (Porcine) 5,000 unit 03/26/25 14:00 03/28/25 13:06 Heparin Sod Inj 5000 Unit/Ml Vial SC 04/09/25 13:59 5,000 unit Q8HR LEAH Administration Hydralazine HCl 10 mg 03/28/25 14:15 03/28/25 15:00 Hydralazine Hcl 10 Mg Tablet PO 04/27/25 14:14 10 mg TID LEAH Administration Levothyroxine Sodium 112 mcg 03/27/25 06:00 03/28/25 05:22 Levothyroxine Sodium 112 Mcg Tablet PO 04/26/25 05:59 112 mcg ACBR LEAH Administration Melatonin 3 mg 03/27/25 00:05 03/27/25 20:22 Melatonin 3 Mg Tablet PO 04/26/25 00:04 3 mg HS LEAH Administration Ondansetron HCl 4 mg 03/26/25 07:33 Ondansetron Inj 2 Mg/Ml Inj 2 Ml IVP 04/25/25 07:32 Q4HR PRN NAUSEA OR VOMITING Pantoprazole Sodium 40 mg 03/26/25 10:15 03/28/25 08:11 Pantoprazole 40 Mg Tablet PO 04/25/25 10:14 40 mg QDAY LEAH Administration Polyethylene Glycol 17 gm 03/28/25 09:00 03/28/25 08:12 Polyethylene Glycol 17 Gm Packet PO 04/27/25 08:59 17 gm QDAY LEAH Administration Sennosides 1 tab 03/26/25 10:01 03/28/25 17:17 Senna Tablet PO 04/25/25 10:00 1 tab QDAY PRN Administration constipation Protocol Sertraline HCl 50 mg 03/26/25 21:00 03/27/25 20:20 Sertraline Hcl 25 Mg Tablet PO 04/25/25 20:59 50 mg HS LEAH Administration Plan #Acute right occipital lobe infarct #Hypertensive encephalopathy - resolved Initially presented with blurry vision, imbalance in the setting of initial BP 235/120. Now has complete resolution of symptoms with improvement in BP CT head w/o: negative for acute hemorrhage CTA: negative for LVO. 40-60% stenosis left carotid bifurcation MRI stroke: Focus of restricted diffusion in the right occipital lobe, 9 mm does show on the ADC map image 13 signal deficit, therefore the findings are most consistent with infarct in the right occipital lobe TTE: Negative bubble study no evodence of PFO Nornal LV size and function , Estimated EF 65%. Mild LVH. RV Normal. Trace MR. No Pericardial Effusion. PT/OT rec daily home PT, ok to discharge when medically cleared Plan: - Continue ASA 81 mg daily, Plavix 75 mg daily, high intensity statin (Atorvastatin 40 mg daily), fenofibrate 72.5 mg daily (home med) - Aggressive BP management per primary team - Amlodipine 10mg PO daily, Carvedilol 12.5mg PO daily, Hydralazine 10mg PO TID - F/U outpatient repeat CTA or carotid Doppler #Hypertension, chronic Home meds: Plan: - BP management per primary team - carvedilol 6.25 mg BID, amlodipine 5 mg BID #Hyperlipidemia Home meds: Simvastatin 40 mg daily, Fenofibrate 72.5 mg daily Plan: - Managed per primary team #UTI UA + leukocyte esterase, nitrite Ucx + Ecoli Plan: - Abx management per primary team Plan discussed with Dr. Deborah Bush, PGY1 Attending Provider Attestation/Addendum I personally have seen and examined the patient at the bedside and agreed with resident's findings, assessment and plan of care. Patient is stable for discharge home on aspirin Plavix and statin and aggressive blood pressure management. She will get repeat with a carotid Doppler or CT angiogram to evaluate for carotid stenosis before deciding on definitive management. Will see her back in 2 weeks
[2025-03-28] MEDS: SERTRALINE HCL 25 MG TABLET 50 MG PO (20:25)
[2025-03-28] MEDS: ATORVASTATIN CALCIUM 20 MG TABLET 40 MG PO (20:25)
[2025-03-28] MEDS: MELATONIN 3 MG TABLET PO (20:27)
[2025-03-28] MEDS: ACETAMINOPHEN 325 MG TABLET 650 MG PO (20:31)
[2025-03-29] VITALS (13 sets, daily range): BP systolic 124–183; BP diastolic 51–84; PULSE 53–64; RESP 17–96; TEMP 36.1–36.5; O2SAT 96–99; BMI 27.2
[2025-03-29] MEDS: hydrALAZINE INJ 20 MG/ML VIAL 10 MG IVP (00:22)
[2025-03-29] MEDS: ACETAMINOPHEN 325 MG TABLET 650 MG PO (02:07)
[2025-03-29] MEDS: LEVOTHYROXINE SODIUM 112 MCG TABLET PO (05:23)
[2025-03-29] MEDS: HEPARIN SOD INJ 5000 UNIT/ML VIAL SC (05:23)
[2025-03-29 06:40] LABS: Basophils # (Auto) 0.1 Thou/mm3 (0.0-0.2); Basophils % (Auto) 1 % (0-2.5); Eosinophils # (Auto) 0.3 Thou/mm3 (0.0-0.5); Eosinophils % (Auto) 4 % (0-10); Hematocrit 36.3 % (36.0-46.0); Hemoglobin 12.3 g/dL (12.0-16.0); Immature Granulocytes Auto 0.03 Thou/mm3 (0.00-0.00); Lymphocytes # (Auto) 2.0 Thou/mm3 (1.0-4.8); Lymphocytes % (Auto) 25 % (10-50); Mean Corpuscular HGB Conc 33.9 g/dl (31.0-37.0); Mean Corpuscular Hemoglobin 29.7 pg (25.0-35.0); Mean Corpuscular Volume 88 fL (80-100); Monocytes # (Auto) 0.8 Thou/mm3 (0.0-0.8); Monocytes % (Auto) 10 % (0-12); Neutrophils # (Auto) 4.7 Thou/mm3 (1.8-7.7); Neutrophils % (Auto) 60 % (37-80); Nucleated Red Blood Cell # 0.00 Thou/mm3 (0.00-0.00); Nucleated Red Blood Cell % 0 /100 WBC (0); Platelet Count 299 Thou/mm3 (140-440); RDW Standard Deviation 47.4 fL (36.4-46.3); Red Blood Count 4.14 Miln/mm3 (4.00-5.20); White Blood Count 7.8 Thou/mm3 (3.6-11.0)
[2025-03-29 07:16] LABS: Alanine Aminotransferase 11 U/L (10-49); Albumin, Serum 3.9 gm/dL (3.4-4.8); Albumin/Globulin Ratio 1.6 (1.2-2.2); Alkaline Phosphatase 57 U/L (46-116); Anion Gap 8 (7-16); Aspartate Amino Transferase 16 U/L (0-34); BUN/Creatinine Ratio 18 Ratio (12-20); Bilirubin,Total 0.3 mg/dL (0.3-1.2); Blood Urea Nitrogen 18 mg/dL (9-23); Calcium 9.3 mg/dL (8.3-10.6); Calcium (Corrected) 9.4 mg/dL (8.5-10.1); Carbon Dioxide 27.4 mMol/L (20.0-31.0); Chloride 100 mMol/L (98-107); Creatinine (Component) 1.0 mg/dL (0.6-1.3); Estimated Creatinine Clearance 35.7 mL/min (>60); Globulin 2.4 gm/dL (2.3-3.5); Glucose 125 mg/dL (74-106); Magnesium 1.8 mg/dL (1.6-2.6); Osmolality,Calculated 273 (275-295); Phosphorous 3.2 mg/dL (2.4-5.1); Potassium 4.5 mMol/L (3.4-5.1); Sodium 135 mMol/L (136-145); Total Protein 6.3 gm/dL (5.7-8.2); eGFR 55 See Note
--- NOTE | 2025-03-29 08:24 | PD.RESPRO ---
Documentation for date of: 03/29/25 Subjective Subjective Interval history: Patient seen at bedside, no new symptoms reported today. Reports complete return to baseline with resolution of initial TIA symptoms Exam Vital Signs Temp Pulse Resp BP Pulse Ox O2 Del Method 97.0 F 60 18 144/84 H 97 Room Air 03/29/25 08:00 03/29/25 08:00 03/29/25 08:00 03/29/25 08:00 03/29/25 08:00 03/29/25 08:00 Narrative Exam General: No acute distress, well nourished Eye: PERRL, EOMI, normal conjunctiva, no scleral icterus HENT: Normocephalic, atraumatic, hearing intact to conversation at normal volume, moist oral mucosa Neck: Supple, non-tender, no JVD, no lymphadenopathy Lungs: Non-labored respirations, symmetric chest rise Heart: Peripheral pulses intact bilaterally Abdomen: Soft, non-tender, non-distended Musculoskeletal: Normal range of motion and strength Skin: Skin is warm, dry, no rashes or lesions. Psychiatric: Cooperative, appropriate mood and affect Neurologic: Mental status: Orientation: Oriented to person, place, time, and situation Communication: Patient is cooperative and can follow simple instructions Language: Speech fluent, normal rate and volume, comprehension intact Cranial nerves: CN II: Visual lim intact CN III: Pupils equal, round, and reactive to light CN III, IV, : No gaze deviation, no nystagmus Horizontal pursuit: intact Vertical pursuit: intact Ptosis: none CN V: Facial sensation to light touch intact bilaterally at the forehead, cheeks, and jaw line CN VII: Face symmetric, no facial droop appreciated CN VIII: Able to hear and respond to conversation at normal volume, intact to finger rub CN IX, X: Palate elevation symmetric, uvula midline CN XI: Head turn and shoulder shrug strong, symmetric bilaterally CN XII: Normal tongue protrusion without deviation, no fasciculations Motor: Normal bulk and tone No atrophy No abnormal movements or fasciculations Muscle strength: Shoulder abduction: R 5/5 L 5/5 Elbow flexion: R 5/5 L 5/5 Elbow extension: R 5/5 L 5/5 Hip flexion: R 5/5 L 5/5 Hip extension: R 5/5 L 5/5 Sensory: RUE: Light touch intact LUE: Light touch intact RLE: Light touch intact LLE: Light touch intact Reflexes: Biceps (C5-6): R 2+ L 2+ Brachioradialis (C5-6): R 2+ L 2+ Triceps (C7-8): R 2+ L 2+ Patellae (L3-4): R 2+ L 2+ No clonus Plantar reflex downgoing bilaterally Cerebellum: RUE: No dysmetria (finger to nose), no dysdiadochokinesia (rapid alternating movements) LUE: No dysmetria (finger to nose), no dysdiadochokinesia (rapid alternating movements) RLE: No dysmetria (heel to caballero) LLE: No dysmetria (heel to caballero) Gait: Deferred Objective Labs 03/29/25 05:52 03/29/25 05:52 Labs: Laboratory Results - last 24 hr 03/29/25 05:52 WBC 7.8 RBC 4.14 Hgb 12.3 Hct 36.3 MCV 88 MCH 29.7 MCHC 33.9 RDW Std Deviation 47.4 H Plt Count 299 Neut % (Auto) 60 Lymph % (Auto) 25 [place] % (Auto) 10 Eos % (Auto) 4 Baso % (Auto) 1 Neut # (Auto) 4.7 Lymph # (Auto) 2.0 [place] # (Auto) 0.8 Eos # (Auto) 0.3 Baso # (Auto) 0.1 Immature Gran # (Auto) 0.03 H Absolute Nucleated RBC 0.00 Immature Gran % 0 Nucleated RBC % 0 Sodium 135 L Potassium 4.5 D Chloride 100 Carbon Dioxide 27.4 Anion Gap 8 BUN 18 Creatinine 1.0 Estim Creat Clear Calc 35.7 L eGFR 55 L BUN/Creatinine Ratio 18 Glucose 125 H Calculated Osmolality 273 L Calcium 9.3 Corrected Calcium 9.4 Phosphorus 3.2 Magnesium 1.8 Total Bilirubin 0.3 AST 16 ALT 11 Alkaline Phosphatase 57 Total Protein 6.3 Albumin 3.9 Globulin 2.4 Albumin/Globulin Ratio 1.6 Quality Measures Quality Measures VTE prophylaxis (Heparin SC) Assessment & Plan Assessment Current Active Medications: Generic Name Dose Route Start Last Admin Trade Name Freq PRN Reason Stop Dose Admin Acetaminophen 650 mg 03/26/25 10:01 03/28/25 20:31 Acetaminophen 325 Mg Tablet PO 04/25/25 10:00 650 mg Q6H PRN Administration Fever >101.5 Acetaminophen 650 mg 03/26/25 10:01 03/29/25 02:07 Acetaminophen 325 Mg Tablet PO 04/25/25 10:00 650 mg Q6H PRN Administration PAIN SCALE 1-3 (mild Amlodipine Besylate 10 mg 03/28/25 21:00 03/28/25 20:27 Amlodipine Besylate 5 Mg Tablet PO 04/27/25 20:59 10 mg BID LEAH Administration Aspirin 81 mg 03/27/25 09:00 03/28/25 08:12 Aspirin Ec 81 Mg Tabec PO 04/26/25 08:59 81 mg QDAY LEAH Administration Atorvastatin Calcium 40 mg 03/26/25 21:00 03/28/25 20:25 Atorvastatin Calcium 20 Mg Tablet PO 04/25/25 20:59 40 mg HS LEAH Administration Carvedilol 12.5 mg 03/28/25 21:00 03/28/25 20:25 Carvedilol 12.5 Mg Tablet PO 04/27/25 20:59 12.5 mg BID LEAH Administration Clopidogrel Bisulfate 75 mg 03/28/25 14:45 03/28/25 15:01 Clopidogrel Bisulfate 75 Mg Tablet PO 04/27/25 14:44 75 mg QDAY LEAH Administration Diazepam 5 mg 03/26/25 15:51 03/28/25 08:12 Diazepam 5 Mg Tablet PO 03/31/25 15:59 5 mg QDAY PRN Administration ANXIETY Fenofibrate 72.5 mg 03/26/25 16:00 03/28/25 08:12 Fenofibrate 145 Mg Tablet (Non-Formulary) PO 04/25/25 15:59 72.5 mg QDAY LEAH Administration Heparin Sodium (Porcine) 5,000 unit 03/26/25 14:00 03/29/25 05:23 Heparin Sod Inj 5000 Unit/Ml Vial SC 04/09/25 13:59 5,000 unit Q8HR LEAH Administration Hydralazine HCl 10 mg 03/28/25 14:15 03/29/25 05:23 Hydralazine Hcl 10 Mg Tablet PO 04/27/25 14:14 10 mg TID LEAH Administration Levothyroxine Sodium 112 mcg 03/27/25 06:00 03/29/25 05:23 Levothyroxine Sodium 112 Mcg Tablet PO 04/26/25 05:59 112 mcg ACBR LEAH Administration Melatonin 3 mg 03/27/25 00:05 03/28/25 20:27 Melatonin 3 Mg Tablet PO 04/26/25 00:04 3 mg HS LEAH Administration Ondansetron HCl 4 mg 03/26/25 07:33 Ondansetron Inj 2 Mg/Ml Inj 2 Ml IVP 04/25/25 07:32 Q4HR PRN NAUSEA OR VOMITING Pantoprazole Sodium 40 mg 03/26/25 10:15 03/28/25 08:11 Pantoprazole 40 Mg Tablet PO 04/25/25 10:14 40 mg QDAY LEAH Administration Polyethylene Glycol 17 gm 03/28/25 09:00 03/28/25 08:12 Polyethylene Glycol 17 Gm Packet PO 04/27/25 08:59 17 gm QDAY LEAH Administration Sennosides 1 tab 03/26/25 10:01 03/28/25 17:17 Senna Tablet PO 04/25/25 10:00 1 tab QDAY PRN Administration constipation Protocol Sertraline HCl 50 mg 03/26/25 21:00 03/28/25 20:25 Sertraline Hcl 25 Mg Tablet PO 04/25/25 20:59 50 mg HS LEAH Administration Plan #Acute right occipital lobe infarct #Hypertensive encephalopathy - resolved Initially presented with blurry vision, imbalance in the setting of initial BP 235/120. Now has complete resolution of symptoms with improvement in BP CT head w/o: negative for acute hemorrhage CTA: negative for LVO. 40-60% stenosis left carotid bifurcation MRI stroke: Focus of restricted diffusion in the right occipital lobe, 9 mm does show on the ADC map image 13 signal deficit, therefore the findings are most consistent with infarct in the right occipital lobe TTE: Negative bubble study no evodence of PFO Nornal LV size and function , Estimated EF 65%. Mild LVH. RV Normal. Trace MR. No Pericardial Effusion. PT/OT rec daily home PT, ok to discharge when medically cleared Plan: - Continue ASA 81 mg daily, Plavix 75 mg daily, high intensity statin (Atorvastatin 40 mg daily), fenofibrate 72.5 mg daily (home med) - Aggressive BP management per primary team - Amlodipine 10mg PO daily, Carvedilol 12.5mg PO daily, Hydralazine 10mg PO TID - F/U outpatient repeat CTA or carotid Doppler #Hypertension, chronic Home meds: Plan: - BP management per primary team - carvedilol 6.25 mg BID, amlodipine 5 mg BID #Hyperlipidemia Home meds: Simvastatin 40 mg daily, Fenofibrate 72.5 mg daily Plan: - Managed per primary team #UTI UA + leukocyte esterase, nitrite Ucx + Ecoli Plan: - Abx management per primary team Plan discussed with Dr. Deborah Bush, PGY1
[2025-03-29] MEDS: PANTOPRAZOLE 40 MG TABLET PO (08:36)
[2025-03-29] MEDS: DIAZEPAM 5 MG TABLET PO (08:37)
[2025-03-29] MEDS: ASPIRIN EC 81 MG TABEC PO (08:38)
[2025-03-29] MEDS: CLOPIDOGREL BISULFATE 75 MG TABLET PO (08:38)
--- NOTE | 2025-03-29 09:19 | PC.PT ---
Patient will be dc from PT services secondary to goals met. Patient is I with ambulation.
[2025-03-29] MEDS: POLYETHYLENE GLYCOL 17 GM PACKET PO (09:32)
[2025-03-29] MEDS: FENOFIBRATE 145 MG TABLET (NON-FORMULARY) 72.5 MG PO (09:32)
--- NOTE | 2025-03-29 10:05 | PD.IMCONS ---
HPI Data of Consult Requesting Physician: Luiza Ferrer DO Primary Care Provider: Benjamin Aiken MD Consult Narrative History of present illness: This is a 89-year-old female with past medical history of hypertension, hyperlipidemia, hypothyroidism pt seen in the EDwith blurred vision and unsteady gait some epigastric burning sensation noted EKG no ischemic changes troponin ,06 x4 pt had a prior stress test in 11/2023 negative for ischemia cardiology consulted for elevated troponin minimal elevation - doubt ACS echo unremarkable cc:: cc: Luiza Ferrer DO Meds Home Medications and Allergies Home Medications ?Medication ?Instructions ?Recorded ?Confirmed ?Type simvastatin 40 mg tablet 40 mg PO QDAY ##0 11/26/12 03/26/25 History fenofibrate nanocrystallized 48 mg 48 mg PO QDAY 10/08/19 03/26/25 History tablet diazepam 5 mg tablet (Valium) 5 mg PO DAILY PRN Anxiety 06/13/23 03/26/25 History aspirin 81 mg tablet 81 mg PO QDAY 03/26/25 03/26/25 History Allergies Allergy/AdvReac Type Severity Reaction Status Date / Time Penicillins Allergy Severe Rash Verified 03/26/25 14:09 shellfish derived Allergy Severe Hives Verified 03/26/25 14:09 tramadol Allergy Severe Headache Verified 03/26/25 14:09 Exam Vital Signs Temp Pulse Resp BP Pulse Ox O2 Del Method 97.0 F 58 L 18 144/84 H 97 Room Air 03/29/25 08:00 03/29/25 08:37 03/29/25 08:00 03/29/25 08:37 03/29/25 08:00 03/29/25 08:00 Routine HEENT Exam Head: Present normocephalic and atraumatic Eye: Present EOMI and PERRL ENT: Present mucous membranes moist Routine Neck Exam Neck: Present supple and trachea midline Routine Respiratory Exam Respiratory: Present chest non-tender, lungs clear, normal breath sounds and no resp distress Routine Cardiovascular Exam Cardiovascular: Present RRR Routine Abdominal Exam Abdominal: Present soft and normoactive bowel sounds Routine Extremities Exam Extremities: Present full ROM Routine Skin Exam Skin: Present intact, dry and warm Routine Neurological Exam Neurological: Present alert, oriented X3 and CN II-XII intact Routine Psychiatric Exam Psychiatric: Present normal affect and normal thought process Results Labs 03/29/25 05:52 03/29/25 05:52 Labs: Short CBC 03/29/25 Range/Units 05:52 WBC 7.8 (3.6-11.0) Thou/mm3 Hgb 12.3 (12.0-16.0) g/dL Hct 36.3 (36.0-46.0) % Plt Count 299 (140-440) Thou/mm3 BMP 03/29/25 05:52 Sodium 135 L Potassium 4.5 D Chloride 100 Carbon Dioxide 27.4 BUN 18 Creatinine 1.0 Glucose 125 H Calcium 9.3 Liver Function 03/29/25 Range/Units 05:52 Total Bilirubin 0.3 (0.3-1.2) mg/dL AST 16 (0-34) U/L ALT 11 (10-49) U/L Alkaline Phosphatase 57 (46-116) U/L Albumin 3.9 (3.4-4.8) gm/dL Assessment and Plan Assessment and plan (1) Hypertension: Status: Chronic (2) Elevated troponin: Status: Acute (3) Transient cerebral ischemia: Status: Resolved Additional Assessment & Plan Additional Plan: pts symptoms are mostly non cardiac doubt ACS echo unremarkable prior stress test negative OK to D/C home will f/u as out pt
--- NOTE | 2025-03-29 11:43 | PC.SS ---
Rounding Note: Plan is for the patient to d/c home today.
--- NOTE | 2025-03-29 14:18 | ESDS_ITS ---
<Statement entered by Luiza Ferrer DO - 03/30/25 17:29> I, Luiza Ferrer DO, attest that I was physically present for the katz portions of the service and evaluated the patient with the resident and I reviewed and discussed the case with the resident and agree with the resident's findings and plans of care as documented above <Statement entered by Saturnino Sepulveda MD - 03/29/25 15:27> I discussed and supervised with the internal grinder set up operator physician who took care of this patient. I personally saw and examined the patient. I agree with most of the assessment and plan. Disclaimer: Despite multiple revisions, due to the dictation software being used, the document bellow may not be free of grammatical errors including phonetic/typographic errors. However, this does not deter from our commitment to providing health care in the patient's best interest in mind. Plan of care discussed with attending Physician Dr. Nabil Sepulveda MD PGY-3 Planned Discharge Date 03/29/25 DS: Providers Provider Date of admission: 03/26/25 10:01 Primary care physician: Benjamin Aiken MD Admitting Provider: Luiza Ferrer DO Attending Provider on Admission: Luiza Ferrer DO Consults: 03/26/25 07:33 Consult to Neurology / Tele-Neurology Routine Comment: Consulting Provider: [facility] 03/26/25 10:06 Consult to Neurology / Tele-Neurology Routine Comment: Consulting Provider: Mario Cabrera Referral Speech Therapy Routine Comment: 03/26/25 10:07 Referral Physical Therapy Routine Comment: Physician Instructions: 03/27/25 02:52 Referral Physical Therapy Routine Comment: Physician Instructions: 03/27/25 02:53 Referral Respiratory Therapy Routine Comment: 03/27/25 10:26 Consult to Cardiology Routine Comment: Consulting Provider: Jay Cabezas Attending Provider on DC: Luiza Ferrer DO Discharging Provider: RESIDENT Garo DS: Diagnosis Problem List Completed Was Problem List Reviewed/Reconciled?: Yes Hospital Course Hospital Course Hospital course: The patient is an 89-year-old female with a history of hypertension, hyperlipidemia, and hypothyroidism who presented to the ED on 03/26/2025 with acute onset blurred vision and imbalance upon waking. She reported transient diplopia and sparkling in the left eye with associated unsteadiness but no loss of consciousness, trauma, or focal weakness. She was found to be hypertensive in the ED (BP 235/120) with no acute changes on initial head CT. CTA head and neck showed 40?60% left carotid bifurcation stenosis. Initial workup included an EKG showing sinus bradycardia with incomplete RBBB and no acute ischemic changes. Labs revealed mild hyponatremia, hypochloremia, and slightly elevated troponin I likely secondary to supply/demand mismatch; she remained chest pain free throughout hospitalization. She was admitted for further stroke evaluation. MRI brain with stroke protocol showed an occipital lobe infarct, confirming an ischemic stroke as the cause of her visual disturbance. She was started on aspirin and statin therapy, with neuro checks and telemetry monitoring. BP was aggressively managed with a combination of amlodipine, carvedilol, and PRN hydralazine, with nicardipine discontinued early in the admission once oral agents were tolerated. Her BP improved with this regimen. Cardiology was consulted for elevated troponin and hypertension management; an echo with bubble study was done and was unremarkable. Neurology followed, and recommended medical management, neuro checks, and continuation of dual vascular risk factor management. A UA showed asymptomatic pyuria with gram negative rods; she was monitored for signs of infection and remained asymptomatic. Sodium and chloride remained stable; IV fluids were discontinued once oral intake was adequate. PT was consulted for gait and fall safety; she remained safe to ambulate with walker and assistance and had no falls during admission. No new neurological deficits were noted during her stay. She remained hemodynamically stable, tolerated diet well, and had no further episodes of visual disturbance, imbalance, or headache. She is safe for discharge with outpatient neurology and cardiology follow-up. 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 #Hypertensive urgency/emergency #UTI #Supply/demand troponin elevation (type 2 NSTEMI) #Mild euvolemic hyponatremia/hypochloremia #Asymptomatic pyuria #History of hypertension #History of hyperlipidemia #History of hypothyroidism #History of depression Care Plan Goals You were found to have stroke during hospital course Continue aspirin, Plavix and atorvastatin daily Your blood pressure medication dose has been increased amlodipine 10 mg twice daily, Coreg 12.5 mg twice a day and added hydralazine 10 mg Take Macrobid for 5 days Take all other home medication as prescribed Your hydrochlorothiazide was stopped Follow-up with your PCP as outpatient in 2 weeks Follow-up with your neurologist as outpatient within 2 weeks In case of emergency, call 911 or come back to the ER Time Spent with Patient Time attestation: Total time spent providing and/or coordinating discharge services: Time spent: Greater than 30 minutes Exam Vital Signs Temp Pulse Resp BP Pulse Ox O2 Del Method 97.1 F 56 L 19 135/51 H 96 Room Air 03/29/25 12:00 03/29/25 12:00 03/29/25 12:00 03/29/25 12:00 03/29/25 12:00 03/29/25 08:00 Narrative Exam General: AAOx4, resting comfortably in no acute distress HEENT: NC/AT, EOMI, clear conjunctiva, oropharynx clear Neck: Supple, no lymphadenopathy Cardiac: RRR, normal S1/S2, no murmurs/rubs/gallops Lungs: CTAB, no wheezes or crackles Abdomen: Soft, nontender, nondistended, active bowel sounds Back: Well-healed surgical scar, no deformity, no CVA tenderness Extremities: No cyanosis, clubbing, or edema Neuro: Alert and oriented, no focal deficit, CN II?XII grossly intact, moving all extremities equally, no pronator drift Skin: Warm, dry, no rash Psych: Normal mood and affect Discharge Plan Plan Patient Disposition: HOME (Self Care) Patient condition on transfer: Stable Care Plan Goals: You were found to have stroke during hospital course Continue aspirin, Plavix and atorvastatin daily Your blood pressure medication dose has been increased amlodipine 10 mg twice daily, Coreg 12.5 mg twice a day and added hydralazine 10 mg Take Macrobid for 5 days Take all other home medication as prescribed Your hydrochlorothiazide was stopped Follow-up with your PCP as outpatient in 2 weeks Follow-up with your neurologist as outpatient within 2 weeks In case of emergency, call 911 or come back to the ER Prescriptions/Referrals Prescriptions/Med Rec: New clopidogrel 75 mg Tablet 75 mg PO QDAY Qty: 90 0RF levothyroxine 112 mcg Tablet 112 mcg PO ACBR Qty: 90 0RF polyethylene glycol 3350 [HealthyLax] 17 gram Powder In Packet 17 g PO QDAY PRN (Reason: constipation) Qty: 14 0RF sertraline 100 mg tablet 100 mg PO HS Qty: 60 0RF amlodipine 5 mg Tablet 10 mg PO BID Qty: 60 0RF carvedilol 12.5 mg Tablet 12.5 mg PO BID Qty: 60 0RF hydralazine 10 mg Tablet 10 mg PO TID Qty: 90 0RF nitrofurantoin 50 mg/5 mL suspension 100 mg PO BID 5 Days Qty: 100 0RF Rx Instructions: must administer with a meal/food Continued simvastatin 40 MG tablet 40 mg PO QDAY Qty: 0 fenofibrate nanocrystallized 48 mg Tablet 48 mg PO QDAY diazepam [Valium] 5 mg Tablet 5 mg PO DAILY PRN (Reason: Anxiety) aspirin 81 mg tablet 81 mg PO QDAY Discontinued sertraline [Zoloft] 100 MG tablet 50 mg PO QDAY Qty: 0 amlodipine 5 mg Tablet 5 mg PO BID Qty: 0 hydrochlorothiazide 12.5 mg Capsule 12.5 mg PO QDAY carvedilol 25 mg Tablet 6.25 mg PO BID Rx Instructions: must administer with a meal/food levothyroxine [Synthroid] 100 mcg Tablet 100 mcg PO QDAY Referrals: Benjamin Aiken MD [Primary Care Provider] - Mario Cabrera MD [Physician] - Patient/Caregiver Discharge Instructions Education Materials: Carotid Artery Problems: Stroke, Discharge Instructions for Stroke, ED TIA: Transient Ischemic Attack Print Language: Greenlandic Stand Alone Forms: [employer] Award Info., Patient Portal Info Letter Discharge Order Discharge Orders: Discharge (Routine); Ordered 03/29/25 Ordered By: Saturnino Sepulveda Quality Discharge Quality Measures VTE prophylaxis
== END 2025-03-29 14:30 | disposition home or self-care (01) | DRG 65 ==
LOC: SERX 10:11 → SERHOLD 10:15 → S2NX 21:28
PROVIDERS: Student in an Organized Health Care Education/Training Program; Admitting Provider Internal Medicine; Emergency Provider Emergency Medicine; PCP Internal Medicine; Visit Provider Internal Medicine
DX: I63.9 Cerebral infarction, unspecified (principal); E87.1 Hypo-osmolality and hyponatremia; I16.1 Hypertensive emergency; I24.89 Other forms of acute ischemic heart disease; N39.0 Urinary tract infection, site not specified; I67.4 Hypertensive encephalopathy; H53.8 Other visual disturbances; E78.5 Hyperlipidemia, unspecified; I10 Essential (primary) hypertension; E03.9 Hypothyroidism, unspecified; I65.22 Occlusion and stenosis of left carotid artery; H93.13 Tinnitus, bilateral; E87.8 Other disorders of electrolyte and fluid balance, not elsewhere classified; I45.10 Unspecified right bundle-branch block; R00.1 Bradycardia, unspecified; F32.A Depression, unspecified; G89.29 Other chronic pain; R26.81 Unsteadiness on feet; H54.62 Unqualified visual loss, left eye, normal vision right eye; Z79.899 Other long term (current) drug therapy; Z79.82 Long term (current) use of aspirin; Z79.02 Long term (current) use of antithrombotics/antiplatelets; Z79.890 Hormone replacement therapy; Z88.0 Allergy status to penicillin; Z88.8 Allergy status to other drugs, medicaments and biological substances
CPT/HCPCS: 36415; 70450; 70496; 70498; 70544; 71045; 80053; 80061; 80307; 80320; 81001; 82248; 83735; 83880; 84100; 84439; 84443; 84484; 85025; 85610; 85730; 87077; 87086; 87186; 92610; 93005; 93306; 96361; 96365; 96372; 97162; 99291; A4649; J0360; J0696; J1644; J3475; J7030; Q9967; A9270; G0480

== ENCOUNTER → 2025-06-09 | Outpatient (CLI) | payer MEDICARE, BC, SELFPAY ==
[2025-06-09 13:05] LABS: Collection Type, Urine Clean Catch
[2025-06-09 13:34] LABS: Bilirubin,Urine Negative (Negative); Blood,Urine Negative (Negative); Clarity,Urine Clear (Clear/Hazy); Color,Urine Lt-Yellow (Lt Yel-Yel); Glucose, Urine Negative (Negative); Ketones,Urine Negative (Negative); Leukocyte Esterase,Urine Positive (Negative); Nitrite,Urine Negative (Negative); PH,Urine 7.0 (5.0-7.0); Protein,Urine Trace (Neg - Trace); RBC,Urine 2 /hpf (0-3); Specific Gravity,Urine 1.012 (1.001-1.035); Squamous Epithelial Cell,Urine < 1 /hpf (0-5); Urobilinogen,Urine Negative mg/dL (0.0-1.0); WBC,Urine 34 /hpf (0-5)
[2025-06-09 13:35] LABS: INR 3.9 (0.9-1.3)
[2025-06-09 13:36] LABS: Prothrombin Time 38.8 Seconds (9.0-12.2)
[2025-06-09 13:51] LABS: Culture Indicated,Urine Yes
== END | disposition home or self-care (01) ==
LOC: COPL 12:25
PROVIDERS: PCP Internal Medicine; Referring Provider Internal Medicine; Visit Provider Internal Medicine
DX: I48.91 Unspecified atrial fibrillation (principal); N39.0 Urinary tract infection, site not specified
CPT/HCPCS: 36415; 81001; 85610; 87077; 87086; 87186

== ENCOUNTER → 2025-06-29 | Outpatient (CLI) | payer MEDICARE, BC, SELFPAY ==
[2025-06-29 08:40] LABS: Basophils # (Auto) 0.1 Thou/mm3 (0.0-0.2); Basophils % (Auto) 1 % (0-2.5); Eosinophils # (Auto) 0.2 Thou/mm3 (0.0-0.5); Eosinophils % (Auto) 3 % (0-10); Hematocrit 38.2 % (36.0-46.0); Hemoglobin 13.2 g/dL (12.0-16.0); Immature Granulocytes Auto 0.03 Thou/mm3 (0.00-0.00); Lymphocytes # (Auto) 1.6 Thou/mm3 (1.0-4.8); Lymphocytes % (Auto) 27 % (10-50); Mean Corpuscular HGB Conc 34.6 g/dl (31.0-37.0); Mean Corpuscular Hemoglobin 29.5 pg (25.0-35.0); Mean Corpuscular Volume 86 fL (80-100); Monocytes # (Auto) 0.6 Thou/mm3 (0.0-0.8); Monocytes % (Auto) 10 % (0-12); Neutrophils # (Auto) 3.6 Thou/mm3 (1.8-7.7); Neutrophils % (Auto) 59 % (37-80); Nucleated Red Blood Cell # 0.00 Thou/mm3 (0.00-0.00); Nucleated Red Blood Cell % 0 /100 WBC (0); Platelet Count 342 Thou/mm3 (140-440); RDW Standard Deviation 42.6 fL (36.4-46.3); Red Blood Count 4.47 Miln/mm3 (4.00-5.20); White Blood Count 6.1 Thou/mm3 (3.6-11.0)
[2025-06-29 08:56] LABS: Glucose Estimated Average 131 mg/dL (80-131); Hemoglobin A1C 6.2 % Hgb (4.8-6.0)
[2025-06-29 08:59] LABS: INR 2.2 (0.9-1.3); Partial Thromboplastin Time 40.2 Seconds (22.0-36.0); Prothrombin Time 21.9 Seconds (9.0-12.2)
[2025-06-29 09:09] LABS: Alanine Aminotransferase 13 U/L (10-49); Albumin, Serum 4.5 gm/dL (3.4-4.8); Albumin/Globulin Ratio 1.7 (1.2-2.2); Alkaline Phosphatase 57 U/L (46-116); Anion Gap 9 (7-16); Aspartate Amino Transferase 19 U/L (0-34); BUN/Creatinine Ratio 21 Ratio (12-20); Bilirubin,Total 0.4 mg/dL (0.3-1.2); Blood Urea Nitrogen 19 mg/dL (9-23); Calcium 9.6 mg/dL (8.3-10.6); Calcium (Corrected) 9.6 mg/dL (8.5-10.1); Carbon Dioxide 28.7 mMol/L (20.0-31.0); Cardiac Risk Estimate 4.6 RATIO (3.7-5.6); Chloride 99 mMol/L (98-107); Cholesterol 152 mg/dL (132-200); Creatinine (Component) 0.9 mg/dL (0.6-1.3); Free T4 (Free Thyroxine) 1.38 ng/dL (0.89-1.76); Globulin 2.7 gm/dL (2.3-3.5); Glucose 121 mg/dL (74-106); HDL Cholesterol 33 mg/dL (40-60); LDL Cholesterol,Calculated 67 mg/dL (0-130); Osmolality,Calculated 277 (275-295); Potassium 3.7 mMol/L (3.4-5.1); Sodium 137 mMol/L (136-145); Thyroid Stimulating Hormone 0.86 uIU/mL (0.55-4.78); Total Protein 7.2 gm/dL (5.7-8.2); Triglycerides 260 mg/dL (30-150); eGFR > 60 See Note
[2025-06-29 09:25] LABS: Vitamin D 25 Hydroxy Total 38.6 ng/mL (7.3-40.2)
== END | disposition home or self-care (01) ==
LOC: COPL 07:42
PROVIDERS: PCP Internal Medicine; Referring Provider Internal Medicine; Visit Provider Internal Medicine
DX: I11.0 Hypertensive heart disease with heart failure (principal); E11.9 Type 2 diabetes mellitus without complications; E55.9 Vitamin D deficiency, unspecified; E78.2 Mixed hyperlipidemia; E03.9 Hypothyroidism, unspecified
CPT/HCPCS: 36415; 80053; 80061; 82306; 83036; 84439; 84443; 85025; 85610; 85730

== ENCOUNTER → 2025-09-06 | Outpatient (CLI) | payer MEDICARE, BC, SELFPAY ==
[2025-09-06 17:59] LABS: INR 1.9 (0.9-1.3); Prothrombin Time 18.8 Seconds (9.0-12.2)
== END | disposition home or self-care (01) ==
PROVIDERS: PCP Internal Medicine; Referring Provider Internal Medicine; Visit Provider Internal Medicine
DX: I48.91 Unspecified atrial fibrillation (principal)
CPT/HCPCS: 36415; 85610